=== PATIENT | female | born 1955 | race Caucasian/White ===

== ENCOUNTER 2017-10-20 20:39 | Emergency (ER) | payer BC ==
[2017-10-20] MEDS ORDERED: Sodium Chloride 0.9% 10 ML Syringe FLUSH PRN ×2 (21:55→23:07)
[2017-10-20] MEDS ORDERED: Sodium Chloride 0.9% 1,000 ML IV STA (21:55)
[2017-10-20] MEDS ORDERED: Ondansetron 4 MG/2 ML SDV IVPUSH ONE (21:55)
[2017-10-20] MEDS ORDERED: HYDROmorphone 0.5 MG/0.5 ML SYRINGE IVPUSH ONE (21:57)
[2017-10-20] MEDS ORDERED: Iopamidol 612 MG/ML 150 ML Bottle IVPUSH ONE (23:07)
[2017-10-20] MEDS ORDERED: Diatrizoate Meglumine/Diatrizoate Sodium 37% 120 ML Bottle PO ONE (23:07)
--- NOTE | 2017-10-20 23:55 | EDM.PDOC ---
ED HPI GENERAL MEDICAL PROBLEM - General Chief Complaint: Abdominal Pain Stated Complaint: CRAMPS ABDOMINAL PAIN Time Seen by Provider: 10/20/17 21:48 Source of Information: Reports: Patient History Limitations: Reports: No Limitations - History of Present Illness INITIAL COMMENTS - FREE TEXT/NARRATIVE: The patient presents with lower abdominal pain. This started about 3 days ago and it has gotten worse. The patient had an EGD done in [place] 9 days ago. She had some thickening of her small intestine on CT according to the patient. She had a biopsy done and she has not heard the results yet. For a few days after that she had some upper abdominal pain that was anticipated after the scope. A few days ago she started having the lower abdominal pain. She does not have an appetite. She has some mild nausea. She has no dysuria. She has a fever or 101. She has no cough, congestion, runny nose, chest pain or shortness of breath. She does not have a gallbladder. Onset: Gradual Duration: Day(s): (3) Location: Reports: Abdomen Quality: Reports: Sharp Severity: Moderate Improves with: Reports: None Worsens with: Reports: None Associated Symptoms: Reports: Fever/Chills, Nausea/Vomiting. Denies: Chest Pain , Cough, Shortness of Breath Lower Abdomen Pain Score (Numeric/FACES): 10 - Related Data Allergies Allergy/AdvReac Type Severity Reaction Status Date / Time morphine Allergy Cannot Verified 09/27/17 07:36 Remember Home Meds: Home Meds Aspirin [Halfprin] 81 mg PO DAILY 10/20/17 [History] Lisinopril [Prinivil] 10 mg PO DAILY 10/20/17 [History] Omeprazole 20 mg PO BID 10/20/17 [History] Ciprofloxacin HCl [Cipro] 500 mg PO BID #20 tablet 10/21/17 [Rx] Hydrocodone/Acetaminophen [Hydrocodon-Acetaminophen 5-325] 1 - 2 each PO Q6HR PRN #10 tablet 10/21/17 [Rx] Ondansetron [Zofran ODT] 4 mg PO Q6H PRN #20 tab.dis 10/21/17 [Rx] metroNIDAZOLE [Flagyl] 500 mg PO Q8H #30 tab 10/21/17 [Rx] Past Medical History Gastrointestinal History: Reports: GERD, Other (See Below) Other Gastrointestinal History: endoscopy x 2 Genitourinary History: Reports: UTI, Recurrent Musculoskeletal History: Reports: Other (See Below) Other Musculoskeletal History: degenerative disc disease Psychiatric History: Reports: Anxiety - Past Surgical History GI Surgical History: Reports: Cholecystectomy Female Surgical History: Reports: Hysterectomy Musculoskeletal Surgical History: Reports: Other (See Below) Other Musculoskeletal Surgeries/Procedures:: left hip fracture; left hand fracture Social & Family History - Tobacco Use Smoking Status *Q: Never Smoker - Caffeine Use Caffeine Use: Reports: Coffee, Soda, Tea - Recreational Drug Use Recreational Drug Use: No ED ROS GENERAL - Review of Systems Review Of Systems: See Below Constitutional: Reports: Fever, Chills HEENT: Reports: No Symptoms Respiratory: Reports: No Symptoms Cardiovascular: Reports: No Symptoms Endocrine: Reports: No Symptoms GI/Abdominal: Reports: Abdominal Pain, Nausea. Denies: Diarrhea, Vomiting : Reports: No Symptoms Musculoskeletal: Reports: No Symptoms ED EXAM, GI/ABD - Physical Exam Exam: See Below Exam Limited By: No Limitations General Appearance: Alert, No Apparent Distress Ears: Normal External Exam Nose: Normal Inspection Head: Atraumatic, Normocephalic Neck: Normal Inspection Respiratory/Chest: No Respiratory Distress, Lungs Clear, Normal Breath Sounds Cardiovascular: Regular Rate, Rhythm, No Edema, No Murmur GI/Abdominal Exam: Soft, No Organomegaly, No Mass, Tender (Moderate tenderness to the RLQ) Back Exam: Normal Inspection Course - Vital Signs Last Recorded V/S: Last Vital Signs Temp 99.3 F 10/20/17 21:22 Pulse 86 10/20/17 21:22 Resp 20 10/20/17 21:22 BP 148/94 H 10/20/17 21:22 Pulse Ox 96 10/20/17 21:22 - Orders/Labs/Meds Orders: Active Orders 24 hr Category Date Time Status Peripheral IV Care [RC] . DIRECTED Care 10/20/17 21:56 Active Abdomen Pelvis w Cont [CT] Stat Exams 10/20/17 21:55 Taken UA W/MICROSCOPIC [URIN] Stat Lab 10/20/17 22:10 Ordered Sodium Chloride 0.9% [Saline Flush] Med 10/20/17 21:55 Active 10 ml FLUSH ASDIRECTED PRN Sodium Chloride 0.9% [Saline Flush] Med 10/20/17 23:07 Active 10 ml FLUSH ONETIME PRN ED Antiemetic Medication Reflex [OM.PC] Stat Oth 10/20/17 21:55 Ordered Peripheral IV Insertion Adult [OM.PC] Stat Oth 10/20/17 21:55 Ordered Medication Orders Sodium Chloride (Saline Flush) 10 ml FLUSH ASDIRECTED PRN PRN Reason: Keep Vein Open Last Admin: 10/20/17 22:08 Dose: 10 ml Sodium Chloride (Saline Flush) 10 ml FLUSH ONETIME PRN PRN Reason: IV FLUSH Last Admin: 10/20/17 23:18 Dose: 10 ml Labs: Laboratory Tests 10/20/17 10/20/17 10/20/17 Range/Units 22:10 22:10 22:10 WBC 12.50 H (3.98-10.04) K/mm3 RBC 4.65 (3.98-5.22) M/mm3 Hgb 13.7 (11.2-15.7) gm/L Hct 41.0 (34.1-44.9) % MCV 88.2 (79.4-94.8) fl MCH 29.5 (25.6-32.2) pg MCHC 33.4 (32.2-35.5) g/dl RDW Std Deviation 38.9 (36.4-46.3) fL Plt Count 261 (182-369) K/mm3 MPV 9.7 (9.4-12.3) fl Neut % (Auto) 78.3 H (34.0-71.1) % Lymph % (Auto) 13.5 L (19.3-51.7) % [place] % (Auto) 7.4 (4.7-12.5) % Eos % (Auto) 0.5 L (0.7-5.8) Baso % (Auto) 0.1 (0.1-1.2) % Neut # (Auto) 9.80 H (1.56-6.13) K/mm3 Lymph # (Auto) 1.69 (1.18-3.74) K/mm3 [place] # (Auto) 0.92 H (0.24-0.36) K/mm3 Eos # (Auto) 0.06 (0.04-0.36) K/mm3 Baso # (Auto) 0.01 (0.01-0.08) K/mm3 Sodium 136 (136-145) mEq/L Potassium 3.5 (3.5-5.1) mEq/L Chloride 99 (98-107) mEq/L Carbon Dioxide 28 (21-32) mEq/L Anion Gap 12.5 (5-15) BUN 8 (7-18) mg/dL Creatinine 0.7 (0.55-1.02) mg/dL Est Cr Clr Drug Dosing 62.07 mL/min Estimated GFR (MDRD) > 60 (>60) mL/min BUN/Creatinine Ratio 11.4 L (14-18) Glucose 109 (80-115) mg/dL Calcium 8.8 (8.5-10.1) mg/dL Total Bilirubin 0.7 (0.2-1.0) mg/dL AST 20 (15-37) U/L ALT 20 (14-59) U/L Alkaline Phosphatase 80 (46-116) U/L Total Protein 7.1 (6.4-8.2) g/dl Albumin 3.6 (3.4-5.0) g/dl Globulin 3.5 gm/dL Albumin/Globulin Ratio 1.0 (1-2) Lipase 78 (73-393) U/L Urine Color Yellow (Yellow) Urine Appearance Clear (Clear) Urine pH 7.0 (5.0-8.0) Ur Specific [place] 1.020 (1.005-1.030) Urine Protein Negative (Negative) Urine Glucose (UA) Negative (Negative) Urine Ketones 3+ H (Negative) Urine Occult Blood Trace-intact H (Negative) Urine Nitrite Negative (Negative) Urine Bilirubin Negative (Negative) Urine Urobilinogen 0.2 (0.2-1.0) Ur Leukocyte Esterase Negative (Negative) Urine RBC 0-5 (0-5) /hpf Urine WBC 0-5 (0-5) /hpf Ur Epithelial Cells 0-5 (0-5) /hpf Urine Bacteria Few (FEW) /hpf Urine Mucus Not seen (FEW) /hpf Meds: Medications Generic Name Dose Route Start Last Admin Trade Name Freq PRN Reason Stop Dose Admin Sodium Chloride 10 ml 10/20/17 21:55 10/20/17 22:08 Saline Flush FLUSH 10 ml ASDIRECTED PRN Administration Keep Vein Open Sodium Chloride 10 ml 10/20/17 23:07 10/20/17 23:18 Saline Flush FLUSH 10 ml ONETIME PRN Administration IV FLUSH Discontinued Medications Generic Name Dose Route Start Last Admin Trade Name Hira PRN Reason Stop Dose Admin Diatrizoate Meglum/Diatrizoate Sod 120 ml 10/20/17 23:07 10/20/17 23:17 Gastrografin 37% PO 10/20/17 23:08 90 ml ONETIME ONE Administration Hydromorphone HCl 0.25 mg 10/20/17 21:57 10/20/17 22:08 Dilaudid IVPUSH 10/20/17 21:58 0.25 mg ONETIME ONE Administration Hydromorphone HCl 0.25 mg 10/21/17 00:20 10/21/17 00:26 Dilaudid IVPUSH 10/21/17 00:21 0.25 mg ONETIME ONE Administration Sodium Chloride 1,000 mls @ 1,000 mls/hr 10/20/17 21:55 10/20/17 22:07 Normal Saline IV 10/20/17 22:54 1,000 mls/hr .BOLUS STA Administration Iopamidol 150 ml 10/20/17 23:07 10/20/17 23:17 Isovue-300 (61%) IVPUSH 10/20/17 23:08 125 ml ONETIME ONE Administration Ondansetron HCl 4 mg 10/20/17 21:55 10/20/17 22:08 Zofran IVPUSH 10/20/17 21:56 4 mg ONETIME ONE Administration Ondansetron HCl 4 mg 10/21/17 00:29 10/21/17 00:32 Zofran IVPUSH 10/21/17 00:30 4 mg ONETIME ONE Administration - Re-Assessments/Exams Free Text/Narrative Re-Assessment/Exam: 10/20/17 23:53 I ordered an IV NS 1L bolus, zofran 4mg IV, dilaudid 0.25mg IV, labs, UA and a CT of her abdomen and pelvis. 10/20/17 23:54 Her WBC was elevated at 12.5. Her CMP looks good. Her lipase was negative. Her UA shows no UTI. I am waiting for the CT report. 10/21/17 00:23 The pain is starting to come back so I ordered another dose of dilaudid 0.25mg IV. I am still waiting on the CT to be read. 10/21/17 00:[address] shows acute diverticulitis involving the sigmoid colon. No evidence of complication. Gastroesophageal reflux. Incidental, non-urgent findings as above. I will give her a dose of levaquin 500mg by mouth and flagyl 500mg by mouth. I will get her on flagyl and cipro at home. Departure - Departure Time of Disposition: 00:45 Disposition: Home, Self-Care 01 Condition: Good Clinical Impression: Diverticulitis - Discharge Information Prescriptions: Hydrocodone/Acetaminophen [Hydrocodon-Acetaminophen 5-325] 1 - 2 each PO Q6HR PRN #10 tablet PRN Reason: Pain Ciprofloxacin HCl [Cipro] 500 mg PO BID #20 tablet metroNIDAZOLE [Flagyl] 500 mg PO Q8H #30 tab Ondansetron [Zofran ODT] 4 mg PO Q6H PRN #20 tab.dis PRN Reason: Nausea\vomiting Referrals: Johanna Hendrix PA-C [Primary Care Provider] - 1 Week Forms: ED Department Discharge Additional Instructions: Take the flagyl 3 times per day for 10 days and the cipro 2 times per day for 10 days. You may take the zofran every 6 hours as needed for nausea and vomiting. You can also take the hydrocodone as needed for pain. Please return if you are worse. Follow up with Emily Hendrix in [place] next week. - My Orders Last 24 Hours: My Active Orders 10/20/17 21:55 Abdomen Pelvis w Cont [CT] Stat Sodium Chloride 0.9% [Saline Flush] 10 ml FLUSH ASDIRECTED PRN ED Antiemetic Medication Reflex [OM.PC] Stat Peripheral IV Insertion Adult [OM.PC] Stat 10/20/17 21:56 Peripheral IV Care [RC] . DIRECTED 10/20/17 22:10 UA W/MICROSCOPIC [URIN] Stat 10/20/17 23:07 Sodium Chloride 0.9% [Saline Flush] 10 ml FLUSH ONETIME PRN - Assessment/Plan Last 24 Hours: My Active Orders 10/20/17 21:55 Abdomen Pelvis w Cont [CT] Stat Sodium Chloride 0.9% [Saline Flush] 10 ml FLUSH ASDIRECTED PRN ED Antiemetic Medication Reflex [OM.PC] Stat Peripheral IV Insertion Adult [OM.PC] Stat 10/20/17 21:56 Peripheral IV Care [RC] . DIRECTED 10/20/17 22:10 UA W/MICROSCOPIC [URIN] Stat 10/20/17 23:07 Sodium Chloride 0.9% [Saline Flush] 10 ml FLUSH ONETIME PRN
[2017-10-21] MEDS ORDERED: HYDROmorphone 0.5 MG/0.5 ML SYRINGE IVPUSH ONE (00:20)
[2017-10-21] MEDS ORDERED: Ondansetron 4 MG/2 ML SDV IVPUSH ONE (00:29)
[2017-10-21] MEDS ORDERED: Levofloxacin 500 MG Tab PO ONE (00:38)
[2017-10-21] MEDS ORDERED: metroNIDAZOLE 500 MG Tab PO ONE (00:39)
--- NOTE | 2017-10-21 12:06 | CT ---
CT abdomen and pelvis Technique: Multiple axial sections were obtained from above the dome of the diaphragm inferiorly through the pubic symphysis. Intravenous and oral contrast was utilized. Delayed images were obtained through the bladder. Comparison: Prior abdominal and pelvic CT exam of 09/27/17. Findings: Visualized lung bases show nothing acute. Low density is noted near the ligamentum teres fissure which is normal variant. Gastroesophageal reflux of contrast is seen. Liver contains no other abnormality. Spleen appears within normal limits. Adrenal glands show no nodule. Pancreas is within normal limits. Several soft tissue nodules are noted medial to the spleen compatible with accessory splenic tissue. Kidneys show no hydronephrosis or mass. Symmetric contrast enhancement seen in the kidneys. Aorta contains no aneurysm. No retroperitoneal adenopathy or mesenteric abnormalities are seen. Appendix is seen which appears normal in size. Numerous diverticuli are seen within the sigmoid colon. Slight inflammatory change is suggested within the sigmoid colon which is felt compatible with mild diverticulitis. Delayed images show contrast within the bladder. Bone window settings were reviewed showing scattered degenerative change within the spine with mild scoliosis. Lucency is seen within left femoral head compatible with previous orthopedic hardware. Impression: 1. Findings felt compatible with mild diverticulitis. 2. Other incidental findings. Diagnostic code #3 I agree with preliminary report from [facility], finalized at 10/21/17, 1:27 AM Central Time
== END 2017-10-21 00:50 | disposition home or self-care (01) ==
LOC: JD.ED 20:39
DX: K57.32 Diverticulitis of large intestine without perforation or abscess without bleeding (principal); Z88.5 Allergy status to narcotic agent; Z79.82 Long term (current) use of aspirin; Z79.899 Other long term (current) drug therapy; Z87.440 Personal history of urinary (tract) infections
CPT/HCPCS: 36415; 74177; 80053; 81001; 83690; 85025; 96361; 96374; 96375; 96376; 99284; A9270; J1170; J2405; J7040; J7050; Q9963; Q9967

== ENCOUNTER 2017-10-23 10:34 | Inpatient (IN) | payer BC ==
[2017-10-23] MEDS ORDERED: Sodium Chloride 0.9% 1,000 ML IV ONE (11:30)
[2017-10-23] MEDS ORDERED: HYDROmorphone 0.5 MG/0.5 ML SYRINGE IVPUSH ONE ×2 (11:30→14:44)
[2017-10-23] MEDS ORDERED: Sodium Chloride 0.9% 10 ML Syringe FLUSH PRN ×2 (11:30→14:00)
[2017-10-23] MEDS ORDERED: Ondansetron 4 MG/2 ML SDV IVPUSH ONE ×2 (11:30→14:44)
--- NOTE | 2017-10-23 12:12 | EDM.PDOC ---
ED HPI GENERAL MEDICAL PROBLEM - General Chief Complaint: Abdominal Pain Stated Complaint: ABDOMINAL PAIN Time Seen by Provider: 10/23/17 11:36 Source of Information: Reports: Patient, Old Records (recent ER visit) History Limitations: Reports: No Limitations - History of Present Illness INITIAL COMMENTS - FREE TEXT/NARRATIVE: 62-year-old female presents for evaluation and treatment of abdominal pain. Patient reports abdominal pain in the lower abdomen, currently rates the pain as 8 or 9 out of 10. She reports associated symptoms of nausea, vomiting and fevers. Patient was seen on Saturday night/ Saturday morning in the ER. She had labs and a CT done. Diagnosed with diverticulitis. She has been on Flagyl and ciprofloxacin since the diagnosis. She was also given [place] and Zofran. She states that she is getting worse. She is vomiting and is therefore unable to keep her antibiotics down. She did take her antibiotic this morning around 6 AM and has kept them down today. No vomiting today. She took a Zofran this morning around 6 AM. She also took a hydrocodone around 4 AM. States her fevers have been 97-99, she has not had a fever since Saturday. No chills or any blood in her stool. She has had diarrhea recently but attributes this to the oral contrast she had on Saturday for the CT. Reports that she has not had much appetite. Patient reports one month ago she experienced "weird sensation" in her lower abdomen. She saw her primary care provider, Elicia Boone, who ordered a CT. She states she had thickening in the small bowel. She had an upper endoscopy with biopsies. Reports that these returned normal. Reports her last colonoscopy was about 5 years ago. Lower Abdominal Pain Score (Numeric/FACES): 9 - Related Data Allergies Allergy/AdvReac Type Severity Reaction Status Date / Time morphine AdvReac Nausea Verified 10/23/17 11:04 Home Meds: Home Meds Aspirin [Halfprin] 81 mg PO DAILY 10/20/17 [History] Lisinopril [Prinivil] 10 mg PO DAILY 10/20/17 [History] Omeprazole 20 mg PO BID 10/20/17 [History] Ciprofloxacin HCl [Cipro] 500 mg PO BID #20 tablet 10/21/17 [Rx] Hydrocodone/Acetaminophen [Hydrocodon-Acetaminophen 5-325] 1 - 2 each PO Q6HR PRN #10 tablet 10/21/17 [Rx] Ondansetron [Zofran ODT] 4 mg PO Q6H PRN #20 tab.dis 10/21/17 [Rx] metroNIDAZOLE [Flagyl] 500 mg PO Q8H #30 tab 10/21/17 [Rx] Past Medical History Gastrointestinal History: Reports: GERD, Other (See Below) Other Gastrointestinal History: endoscopy x 2 Genitourinary History: Reports: UTI, Recurrent Musculoskeletal History: Reports: Other (See Below) Other Musculoskeletal History: degenerative disc disease Psychiatric History: Reports: Anxiety - Past Surgical History GI Surgical History: Reports: Cholecystectomy Female Surgical History: Reports: Hysterectomy Musculoskeletal Surgical History: Reports: Other (See Below) Other Musculoskeletal Surgeries/Procedures:: left hip fracture; left hand fracture Social & Family History - Family History Family Medical History: Noncontributory - Tobacco Use Smoking Status *Q: Never Smoker - Caffeine Use Caffeine Use: Reports: Coffee - Recreational Drug Use Recreational Drug Use: No ED ROS GENERAL - Review of Systems Review Of Systems: See Below Constitutional: Reports: Fever (reports 97-99; no fever since Saturday), Malaise, Decreased Appetite. Denies: Chills GI/Abdominal: Reports: Abdominal Pain (lower abdomen), Diarrhea, Nausea, Vomiting. Denies: Bloody Stool : Reports: No Symptoms ED EXAM, GI/ABD - Physical Exam Exam: See Below Exam Limited By: No Limitations General Appearance: Alert, WD/WN, No Apparent Distress Respiratory/Chest: No Respiratory Distress, Lungs Clear, Normal Breath Sounds Cardiovascular: Normal Peripheral Pulses, Regular Rate, Rhythm, No Murmur GI/Abdominal Exam: Normal Bowel Sounds, Soft, No Distention, Tender (LLQ). No: Guarding, Rigid, Rebound Neurological: Alert, Oriented, Normal Cognition Psychiatric: Normal Affect, Normal Mood Skin Exam: Warm, Dry, Normal Color Course - Vital Signs Last Recorded V/S: Last Vital Signs Temp 36.9 C 10/23/17 11:05 Pulse 86 10/23/17 11:05 Resp 18 10/23/17 11:05 BP 135/70 10/23/17 11:05 Pulse Ox 99 10/23/17 11:05 - Orders/Labs/Meds Orders: Active Orders 24 hr Category Date Time Status Peripheral IV Care [RC] . DIRECTED Care 10/23/17 11:31 Active UA W/MICROSCOPIC [URIN] Stat Lab 10/23/17 13:05 Ordered Sodium Chloride 0.9% [Normal Saline] 1,000 ml Med 10/23/17 13:15 Active IV ASDIRECTED Sodium Chloride 0.9% [Saline Flush] Med 10/23/17 11:30 Active 10 ml FLUSH ASDIRECTED PRN Sodium Chloride 0.9% [Saline Flush] Med 10/23/17 14:00 Active 10 ml FLUSH ONETIME PRN Peripheral IV Insertion Adult [OM.PC] Routine Oth 10/23/17 11:30 Ordered Medication Orders Sodium Chloride (Normal Saline) 1,000 mls @ 125 mls/hr IV ASDIRECTED EVER Last Admin: 10/23/17 13:08 Dose: 125 mls/hr Sodium Chloride (Saline Flush) 10 ml FLUSH ASDIRECTED PRN PRN Reason: Keep Vein Open Last Admin: 10/23/17 11:54 Dose: 10 ml Sodium Chloride (Saline Flush) 10 ml FLUSH ONETIME PRN PRN Reason: IV FLUSH Last Admin: 10/23/17 14:19 Dose: 10 ml Labs: Laboratory Tests 10/23/17 10/23/17 10/23/17 Range/Units 11:38 11:38 13:05 WBC 14.47 H (3.98-10.04) K/mm3 RBC 4.29 (3.98-5.22) M/mm3 Hgb 12.6 (11.2-15.7) gm/L Hct 38.1 (34.1-44.9) % MCV 88.8 (79.4-94.8) fl MCH 29.4 (25.6-32.2) pg MCHC 33.1 (32.2-35.5) g/dl RDW Std Deviation 37.8 (36.4-46.3) fL Plt Count 265 (182-369) K/mm3 MPV 9.7 (9.4-12.3) fl Neutrophils % (Manual) 86 H (40-60) % Band Neutrophils % 0 (0-10) % Lymphocytes % (Manual) 11 L (20-40) % Atypical Lymphs % 0 % Monocytes % (Manual) 3 (2-10) % Eosinophils % (Manual) 0 L (0.7-5.8) % Basophils % (Manual) 0 L (0.1-1.2) Differential Comment See note Platelet Estimate Adequate RBC Morph Comment Normal Sodium 129 L (136-145) mEq/L Potassium 3.7 (3.5-5.1) mEq/L Chloride 92 L (98-107) mEq/L Carbon Dioxide 25 (21-32) mEq/L Anion Gap 15.7 H (5-15) BUN 7 (7-18) mg/dL Creatinine 0.8 (0.55-1.02) mg/dL Est Cr Clr Drug Dosing 54.31 mL/min Estimated GFR (MDRD) > 60 (>60) mL/min BUN/Creatinine Ratio 8.8 L (14-18) Glucose 79 L (80-115) mg/dL Calcium 8.5 (8.5-10.1) mg/dL Total Bilirubin 0.8 (0.2-1.0) mg/dL AST 21 (15-37) U/L ALT 26 (14-59) U/L Alkaline Phosphatase 79 (46-116) U/L C-Reactive Protein 18.0 H* (<1.0) mg/dL Total Protein 6.8 (6.4-8.2) g/dl Albumin 3.3 L (3.4-5.0) g/dl Globulin 3.5 gm/dL Albumin/Globulin Ratio 0.9 L (1-2) Urine Color Light yellow (Yellow) Urine Appearance Clear (Clear) Urine pH 6.0 (5.0-8.0) Ur Specific [place] 1.015 (1.005-1.030) Urine Protein Negative (Negative) Urine Glucose (UA) Negative (Negative) Urine Ketones 3+ H (Negative) Urine Occult Blood Negative (Negative) Urine Nitrite Negative (Negative) Urine Bilirubin Negative (Negative) Urine Urobilinogen 0.2 (0.2-1.0) Ur Leukocyte Esterase Negative (Negative) Urine RBC 0-5 (0-5) /hpf Urine WBC 0-5 (0-5) /hpf Ur Epithelial Cells 0-5 (0-5) /hpf Urine Bacteria Not seen (FEW) /hpf Urine Mucus Not seen (FEW) /hpf Meds: Medications Generic Name Dose Route Start Last Admin Trade Name Freq PRN Reason Stop Dose Admin Sodium Chloride 1,000 mls @ 125 mls/hr 10/23/17 13:15 10/23/17 13:08 Normal Saline IV 125 mls/hr ASDIRECTED EVER Administration Sodium Chloride 10 ml 10/23/17 11:30 10/23/17 11:54 Saline Flush FLUSH 10 ml ASDIRECTED PRN Administration Keep Vein Open Sodium Chloride 10 ml 10/23/17 14:00 10/23/17 14:19 Saline Flush FLUSH 10 ml ONETIME PRN Administration IV FLUSH Discontinued Medications Generic Name Dose Route Start Last Admin Trade Name Freq PRN Reason Stop Dose Admin Diatrizoate Meglum/Diatrizoate Sod 90 ml 10/23/17 14:00 10/23/17 14:19 Gastrografin 37% PO 10/23/17 14:01 90 ml ONETIME ONE Administration Hydromorphone HCl 0.5 mg 10/23/17 11:30 10/23/17 11:53 Dilaudid IVPUSH 10/23/17 11:31 0.5 mg ONETIME ONE Administration Hydromorphone HCl 0.5 mg 10/23/17 14:44 10/23/17 15:01 Dilaudid IVPUSH 10/23/17 14:45 0.5 mg ONETIME ONE Administration Sodium Chloride 1,000 mls @ 999 mls/hr 10/23/17 11:30 10/23/17 11:52 Normal Saline IV 10/23/17 12:30 999 mls/hr ONETIME ONE Administration Iopamidol 100 ml 10/23/17 14:00 10/23/17 14:19 Isovue-300 (61%) IVPUSH 10/23/17 14:01 100 ml ONETIME ONE Administration Metoclopramide HCl 5 mg 10/23/17 13:04 10/23/17 13:09 Reglan IVPUSH 10/23/17 13:05 5 mg ONETIME ONE Administration Ondansetron HCl 4 mg 10/23/17 11:30 10/23/17 11:53 Zofran IVPUSH 10/23/17 11:31 4 mg ONETIME ONE Administration Ondansetron HCl 4 mg 10/23/17 14:44 10/23/17 15:00 Zofran IVPUSH 10/23/17 14:45 4 mg ONETIME ONE Administration - Radiology Interpretation Free Text/Narrative:: Abdomen: Supine and upright views of the abdomen were obtained. Comparison: Prior abdominal x-ray of 09/25/17. Scoliosis is noted within the spine. Scattered degenerative change also seen. Surgical clips are seen within the upper right abdomen. Bowel gas pattern appears normal. Calcifications are seen within the pelvis which are felt compatible with phleboliths. Surgical clips are noted from prior cholecystectomy. No free air is seen. Impression: 1. Incidental findings. No free air is seen. CT abdomen and pelvis Technique: Multiple axial sections were obtained from above the dome of the diaphragm inferiorly through the pubic symphysis. Intravenous and oral contrast was utilized. Comparison: Prior CT abdomen and pelvis exam of 10/20/17. Findings: Inflammatory change is identified around the sigmoid colon with diverticuli. Increased inflammatory change is seen as well as increased bowel wall thickening. There appears to be a small diverticular abscess off the inferior sigmoid colon into the perirectal soft tissues on the left side. This diverticular abscess measures about 2.2 cm. Visualized lung bases shows nothing acute. Liver and spleen appears within normal limits. Surgical clips are seen from prior cholecystectomy. Adrenal glands show no nodule. Kidneys show symmetric contrast enhancement without hydronephrosis or mass. Pancreas appears within normal limits. Aorta shows atherosclerotic calcification without aneurysmal dilatation. No retroperitoneal adenopathy or mesenteric abnormalities are seen. Bone window settings were reviewed which shows degenerative change primarily at L2-3. Lucency is again noted within the left femoral head compatible with previous orthopedic hardware which has been removed. Impression: 1. Worsening findings of diverticulitis with increased inflammatory change as well as increased bowel wall thickening within the sigmoid colon. Small diverticular abscess is now seen extending inferiorly off the sigmoid colon into the left sided perirectal soft tissues measuring about 2.2 cm in size. 2. Other portions of the CT exam of the abdomen and pelvis are unremarkable. - Re-Assessments/Exams Free Text/Narrative Re-Assessment/Exam: 10/23/17 13:00 Patient's labs returned. White blood cell count is elevated, CRP is elevated. Rechecked the patient. She is doing better with the Zofran and the Dilaudid. Discussed the case with Dr. High. Given that she has failed outpatient the do feel that she would benefit from an inpatient admission for IV antibiotics, fluids and pain control. He would like us to go ahead and CT to make sure she has not developed an abscess or perforation. 10/23/17 14:48 [address] returned. Spoke with Dr. Celis, surgery personal caregiver, recommended discussing with IR. Said normally under 3cm abscess is managed with antibiotics. Discussed with patient. Pain and nausea worsening. Dilaudid and Reglan ordered. 10/23/17 15:[address] Ward, interventional radiologist at [facility] in [place]. At this time he does not feel that any intervention is needed and recommended IV antibiotics. He did look at her CT. He did tell me that by Saturday or Saturday the abscess and phlegmon should declare itself and if intervention is needed at that time we will know by Saturday or Saturday. I discussed with the patient. I did offer to send her to [place] where if she does need further intervention this is available to her. I informed her for the immediate future treatment would be the same whether here or in [place] with IV antibiotics, nausea medication and pain control. She would like to stay here in [place] as they reside out in [facility] and this is more convenient for her. She was informed that if her symptoms do worsen she may need to go to [place] and she is okay with this. Departure - Departure Time of Disposition: 15:40 Disposition: Admitted As Inpatient 65 Condition: Poor Clinical Impression: Diverticulitis, Colonic diverticular abscess - Discharge Information Referrals: Johanna Hendrix PA-C [Primary Care Provider] - Forms: ED Department Discharge Additional Instructions: Patient admitted to med/surg for diverticulitis with abscess. Failed outpatient treatment. - My Orders Last 24 Hours: My Active Orders 10/23/17 11:30 Sodium Chloride 0.9% [Saline Flush] 10 ml FLUSH ASDIRECTED PRN Peripheral IV Insertion Adult [OM.PC] Routine 10/23/17 11:31 Peripheral IV Care [RC] . DIRECTED 10/23/17 13:05 UA W/MICROSCOPIC [URIN] Stat 10/23/17 13:15 Sodium Chloride 0.9% [Normal Saline] 1,000 ml IV ASDIRECTED 10/23/17 14:00 Sodium Chloride 0.9% [Saline Flush] 10 ml FLUSH ONETIME PRN - Assessment/Plan Last 24 Hours: My Active Orders 10/23/17 11:30 Sodium Chloride 0.9% [Saline Flush] 10 ml FLUSH ASDIRECTED PRN Peripheral IV Insertion Adult [OM.PC] Routine 10/23/17 11:31 Peripheral IV Care [RC] . DIRECTED 10/23/17 13:05 UA W/MICROSCOPIC [URIN] Stat 10/23/17 13:15 Sodium Chloride 0.9% [Normal Saline] 1,000 ml IV ASDIRECTED 10/23/17 14:00 Sodium Chloride 0.9% [Saline Flush] 10 ml FLUSH ONETIME PRN
[2017-10-23] MEDS ORDERED: Metoclopramide 10 MG/2 ML SDV IVPUSH ONE (13:04)
[2017-10-23] MEDS: Sodium Chloride 0.9% 1,000 ML IV SCH ×2 (13:08→22:36)
--- NOTE | 2017-10-23 13:40 | CR ---
Abdomen: Supine and upright views of the abdomen were obtained. Comparison: Prior abdominal x-ray of 09/25/17. Scoliosis is noted within the spine. Scattered degenerative change also seen. Surgical clips are seen within the upper right abdomen. Bowel gas pattern appears normal. Calcifications are seen within the pelvis which are felt compatible with phleboliths. Surgical clips are noted from prior cholecystectomy. No free air is seen. Impression: 1. Incidental findings. No free air is seen. Diagnostic code #2
[2017-10-23] MEDS ORDERED: Iopamidol 612 MG/ML 100 ML Bottle IVPUSH ONE (14:00)
[2017-10-23] MEDS ORDERED: Diatrizoate Meglumine/Diatrizoate Sodium 37% 120 ML Bottle PO ONE (14:00)
--- NOTE | 2017-10-23 14:34 | CT ---
CT abdomen and pelvis Technique: Multiple axial sections were obtained from above the dome of the diaphragm inferiorly through the pubic symphysis. Intravenous and oral contrast was utilized. Comparison: Prior CT abdomen and pelvis exam of 10/20/17. Findings: Inflammatory change is identified around the sigmoid colon with diverticuli. Increased inflammatory change is seen as well as increased bowel wall thickening. There appears to be a small diverticular abscess off the inferior sigmoid colon into the perirectal soft tissues on the left side. This diverticular abscess measures about 2.2 cm. Visualized lung bases shows nothing acute. Liver and spleen appears within normal limits. Surgical clips are seen from prior cholecystectomy. Adrenal glands show no nodule. Kidneys show symmetric contrast enhancement without hydronephrosis or mass. Pancreas appears within normal limits. Aorta shows atherosclerotic calcification without aneurysmal dilatation. No retroperitoneal adenopathy or mesenteric abnormalities are seen. Bone window settings were reviewed which shows degenerative change primarily at L2-3. Lucency is again noted within the left femoral head compatible with previous orthopedic hardware which has been removed. Impression: 1. Worsening findings of diverticulitis with increased inflammatory change as well as increased bowel wall thickening within the sigmoid colon. Small diverticular abscess is now seen extending inferiorly off the sigmoid colon into the left sided perirectal soft tissues measuring about 2.2 cm in size. 2. Other portions of the CT exam of the abdomen and pelvis are unremarkable. Diagnostic code #3
[2017-10-23] MEDS ORDERED: Docusate Sodium 100 MG Cap PO PRN (16:40)
[2017-10-23] MEDS ORDERED: Bisacodyl 5 MG Tab PO PRN (16:40)
[2017-10-23] MEDS ORDERED: Magnesium Hydroxide 400 MG/5 ML Susp 30 ML Cup PO PRN (16:40)
[2017-10-23] MEDS ORDERED: Temazepam 7.5 MG Cap PO PRN (16:40)
[2017-10-23] MEDS ORDERED: Acetaminophen 325 MG Tab PO PRN (16:40)
[2017-10-23] MEDS ORDERED: Polyethylene Glycol 3350 Powder 17 GM Packet PO PRN (16:40)
[2017-10-23] MEDS ORDERED: Promethazine 25 MG Tab PO PRN (16:40)
[2017-10-23] MEDS ORDERED: hydrALAZINE 20 MG/ML SDV IVPUSH PRN ×2 (16:55→23:34)
--- NOTE | 2017-10-23 17:04 | PCM.HP ---
H&P History of Present Illness - General Date of Service: 10/23/17 Admit Problem/Dx: Admission Diagnosis/Problem Admission Diagnosis/Problem Diverticulitis Source of Information: Patient, Provider History Limitations: Reports: No Limitations - History of Present Illness Initial Comments - Free Text/Narative: This is a 62 yo female with past medical hx/o HTN, GERD, Anxiety who comes in for worsening diverticulitis. Currently 7/10 pain. She reports fever, nausea, vomiting, diarrhea, decreased appetite. She denies chills, bloody stool or other GI/ complaints. Her symptoms improved after receiving fluids, anti-nausea medication, and pain medication in the ED. Her initial workup in the ED shows a CBC remarkable for WBC 14.47, Neutrophils of 86%, and lymphocyte of 11%. Her chemistry is remarkable for Na 129, Cl 92, Anion Gap 15.7, Glucose 79, CRP 18, Albumin 3.3. CT showed worsening diverticulitis and 2.2 cm abscess. She is subsequently admitted to the medical floor. She is a Full code. Her PCP is Johanna Hendrix. Lower Abdominal Pain Score (Numeric/FACES): 9 - Related Data Allergies/Adverse Reactions: Allergies Allergy/AdvReac Type Severity Reaction Status Date / Time morphine AdvReac Nausea Verified 10/23/17 11:04 Home Medications: Home Meds Aspirin [Halfprin] 81 mg PO DAILY 10/20/17 [History] Lisinopril [Prinivil] 10 mg PO DAILY 10/20/17 [History] Omeprazole 20 mg PO BID 10/20/17 [History] Ciprofloxacin HCl [Cipro] 500 mg PO BID #20 tablet 10/21/17 [Rx] Hydrocodone/Acetaminophen [Hydrocodon-Acetaminophen 5-325] 1 - 2 each PO Q6HR PRN #10 tablet 10/21/17 [Rx] Ondansetron [Zofran ODT] 4 mg PO Q6H PRN #20 tab.dis 10/21/17 [Rx] metroNIDAZOLE [Flagyl] 500 mg PO Q8H #30 tab 10/21/17 [Rx] Past Medical History HEENT History: Reports: Impaired Vision, Other (See Below) Other HEENT History: dry eye Cardiovascular History: Reports: Hypertension Gastrointestinal History: Reports: GERD, Other (See Below) Other Gastrointestinal History: endoscopy x 2 Genitourinary History: Reports: UTI, Recurrent Musculoskeletal History: Reports: Other (See Below) Other Musculoskeletal History: degenerative disc disease Psychiatric History: Reports: Anxiety Hematologic History: Reports: Blood Transfusion(s), Other (See Below) Other Hematologic History: blood transfusin due to miscarriage complications. - Infectious Disease History Infectious Disease History: Reports: Chicken Pox - Past Surgical History GI Surgical History: Reports: Cholecystectomy Female Surgical History: Reports: Hysterectomy Musculoskeletal Surgical History: Reports: Other (See Below) Other Musculoskeletal Surgeries/Procedures:: left hip fracture; left hand fracture Social & Family History - Family History Family Medical History: Noncontributory - Tobacco Use Smoking Status *Q: Never Smoker Second Hand Smoke Exposure: No - Caffeine Use Caffeine Use: Reports: Coffee, Soda, Tea - Recreational Drug Use Recreational Drug Use: No H&P Review of Systems - Review of Systems: Review Of Systems: See Below General: Reports: Fever, Decreased Appetite. Denies: Chills HEENT: Reports: No Symptoms Pulmonary: Reports: No Symptoms. Denies: Shortness of Breath, Cough Cardiovascular: Reports: No Symptoms. Denies: Chest Pain, Palpitations, Dyspnea on Exertion Gastrointestinal: Reports: Abdominal Pain (7/10 lower abdominal pain), Diarrhea , Decreased Appetite, Nausea, Vomiting. Denies: Hematochezia Genitourinary: Reports: No Symptoms. Denies: Dysuria, Frequency, Burning, Pain Musculoskeletal: Reports: No Symptoms Skin: Reports: No Symptoms Psychiatric: Reports: No Symptoms Neurological: Reports: No Symptoms Hematologic/Lymphatic: Reports: No Symptoms Immunologic: Reports: No Symptoms Exam - Exam Exam: See Below - Vital Signs Vital Signs: Last Vital Signs Temp 98.5 F 10/23/17 11:05 Pulse 86 10/23/17 11:05 Resp 18 10/23/17 11:05 BP 135/70 10/23/17 11:05 Pulse Ox 99 10/23/17 11:05 Weight: 133 lb 12.8 oz - Exam Quality Assessment: DVT Prophylaxis General: Alert, Oriented, Cooperative, Mild Distress HEENT: PERRLA, Hearing Intact, Mucosa Moist & [place], Nares Patent, Normal Nasal Septum, Posterior Pharynx Clear, Conjunctiva Clear, EOMI, EACs Clear, TMs Clear Neck: Supple, Trachea Midline, 2 Lungs: Clear to Auscultation, Normal Respiratory Effort Cardiovascular: Regular Rate, Regular Rhythm GI/Abdominal Exam: Normal Bowel Sounds, Soft, No Organomegaly, No Distention, No Abnormal Bruit, No Mass, Pelvis Stable, Tender (lower quadrants). No: Distended (Female) Exam: Deferred Rectal (Female) Exam: Deferred Back Exam: Normal Inspection, Full Range of Motion, NT Extremities: Normal Inspection, Normal Range of Motion, Non-Tender, No Pedal Edema, Normal Capillary Refill Peripheral Pulses: 3+: Posterior Tibial (L), Posterior Tibial (R), Dorsalis Pedis (L), Dorsalis Pedis (R) Skin: Warm, Dry, Intact Neurological: Cranial Nerves Intact (grossly) Neuro Extensive - Mental Status: Alert, Oriented x3, Normal Mood/Affect, Normal Cognition Psychiatric: Alert, Normal Affect, Normal Mood - Patient Data Lab Results Last 24 hrs: Laboratory Results - last 24 hr 10/23/17 10/23/17 10/23/17 Range/Units 11:38 11:38 13:05 WBC 14.47 H (3.98-10.04) K/mm3 RBC 4.29 (3.98-5.22) M/mm3 Hgb 12.6 (11.2-15.7) gm/L Hct 38.1 (34.1-44.9) % MCV 88.8 (79.4-94.8) fl MCH 29.4 (25.6-32.2) pg MCHC 33.1 (32.2-35.5) g/dl RDW Std Deviation 37.8 (36.4-46.3) fL Plt Count 265 (182-369) K/mm3 MPV 9.7 (9.4-12.3) fl Neutrophils % (Manual) 86 H (40-60) % Band Neutrophils % 0 (0-10) % Lymphocytes % (Manual) 11 L (20-40) % Atypical Lymphs % 0 % Monocytes % (Manual) 3 (2-10) % Eosinophils % (Manual) 0 L (0.7-5.8) % Basophils % (Manual) 0 L (0.1-1.2) Differential Comment See note Platelet Estimate Adequate RBC Morph Comment Normal Sodium 129 L (136-145) mEq/L Potassium 3.7 (3.5-5.1) mEq/L Chloride 92 L (98-107) mEq/L Carbon Dioxide 25 (21-32) mEq/L Anion Gap 15.7 H (5-15) BUN 7 (7-18) mg/dL Creatinine 0.8 (0.55-1.02) mg/dL Est Cr Clr Drug Dosing 54.31 mL/min Estimated GFR (MDRD) > 60 (>60) mL/min BUN/Creatinine Ratio 8.8 L (14-18) Glucose 79 L (80-115) mg/dL Calcium 8.5 (8.5-10.1) mg/dL Total Bilirubin 0.8 (0.2-1.0) mg/dL AST 21 (15-37) U/L ALT 26 (14-59) U/L Alkaline Phosphatase 79 (46-116) U/L C-Reactive Protein 18.0 H* (<1.0) mg/dL Total Protein 6.8 (6.4-8.2) g/dl Albumin 3.3 L (3.4-5.0) g/dl Globulin 3.5 gm/dL Albumin/Globulin Ratio 0.9 L (1-2) Urine Color Light yellow (Yellow) Urine Appearance Clear (Clear) Urine pH 6.0 (5.0-8.0) Ur Specific [place] 1.015 (1.005-1.030) Urine Protein Negative (Negative) Urine Glucose (UA) Negative (Negative) Urine Ketones 3+ H (Negative) Urine Occult Blood Negative (Negative) Urine Nitrite Negative (Negative) Urine Bilirubin Negative (Negative) Urine Urobilinogen 0.2 (0.2-1.0) Ur Leukocyte Esterase Negative (Negative) Urine RBC 0-5 (0-5) /hpf Urine WBC 0-5 (0-5) /hpf Ur Epithelial Cells 0-5 (0-5) /hpf Urine Bacteria Not seen (FEW) /hpf Urine Mucus Not seen (FEW) /hpf Result Diagrams: 10/23/17 11:38 10/23/17 11:38 - Problem List (1) Colonic diverticular abscess SNOMED Code(s): 872423313 ICD Code: K57.20 - DVTRCLI OF LG INT W PERFORATION AND ABSCESS W/O BLEEDING Status: Acute Priority: High Current Visit: Yes (2) Diverticulitis SNOMED Code(s): 392633777 ICD Code: K57.92 - DVTRCLI OF INTEST, PART UNSP, W/O PERF OR ABSCESS W/O BLEED Status: Acute Priority: High Current Visit: Yes Problem List Initiated/Reviewed/Updated: Yes Orders Last 24hrs: Active Orders 24 hr Category Date Time Status Patient Status [ADT] Routine ADT 10/23/17 16:06 Active Ambulate [RC] ASDIRECTED Care 10/23/17 16:40 Active Ambulate [RC] PER UNIT ROUTINE Care 10/23/17 16:43 Active Height and Weight [RC] DAILY Care 10/23/17 16:40 Active Intake and Output [RC] QSHIFT Care 10/23/17 16:42 Active May Shower [RC] ASDIRECTED Care 10/23/17 16:40 Active Oxygen Therapy [RC] PRN Care 10/23/17 16:40 Active Peripheral IV Care [RC] . DIRECTED Care 10/23/17 11:31 Active Pulse Oximetry [RC] PRN Care 10/23/17 16:42 Active VTE/DVT Education [RC] PER UNIT ROUTINE Care 10/23/17 16:40 Active Vital Signs [RC] Q4H Care 10/23/17 16:40 Active Consult to Spiritual Care [CONS] Routine Cons 10/23/17 16:40 Active Nothing per Oral Now Diet [DIET] Diet 10/23/17 Dinner Active Abdomen w Cont [CT] Routine Exams 10/25/17 05:11 Ordered BASIC METABOLIC PANEL,BMP [CHEM] AM Lab 10/24/17 05:11 Ordered BASIC METABOLIC PANEL,BMP [CHEM] AM Lab 10/25/17 05:11 Ordered BASIC METABOLIC PANEL,BMP [CHEM] AM Lab 10/26/17 05:11 Ordered BASIC METABOLIC PANEL,BMP [CHEM] AM Lab 10/27/17 05:11 Ordered C-REACTIVE PROTEIN [CHEM] AM Lab 10/24/17 05:11 Ordered C-REACTIVE PROTEIN [CHEM] AM Lab 10/25/17 05:11 Ordered C-REACTIVE PROTEIN [CHEM] AM Lab 10/26/17 05:11 Ordered C-REACTIVE PROTEIN [CHEM] AM Lab 10/27/17 05:11 Ordered CBC WITH AUTO DIFF [HEME] AM Lab 10/24/17 05:11 Ordered CBC WITH AUTO DIFF [HEME] AM Lab 10/25/17 05:11 Ordered CBC WITH AUTO DIFF [HEME] AM Lab 10/26/17 05:11 Ordered CBC WITH AUTO DIFF [HEME] AM Lab 10/27/17 05:11 Ordered MAGNESIUM [CHEM] AM Lab 10/24/17 05:11 Ordered MAGNESIUM [CHEM] AM Lab 10/25/17 05:11 Ordered MAGNESIUM [CHEM] AM Lab 10/26/17 05:11 Ordered MAGNESIUM [CHEM] AM Lab 10/27/17 05:11 Ordered UA W/MICROSCOPIC [URIN] Stat Lab 10/23/17 13:05 Ordered Acetaminophen [Tylenol] Med 10/23/17 16:40 Ordered 650 mg PO Q4H PRN Acetaminophen/HYDROcodone [Sandwich 325-5 MG] Med 10/23/17 16:50 Ordered 1 tab PO Q4H PRN Aspirin [Halfprin] Med 10/24/17 09:00 Active 81 mg PO DAILY Bisacodyl [Dulcolax] Med 10/23/17 16:40 Ordered 5 mg PO DAILY PRN Docusate Sodium [Colace] Med 10/23/17 16:40 Ordered 100 mg PO BID PRN Docusate Sodium/Sennosides [Senna Plus] Med 10/23/17 16:40 Ordered 1 tab PO BID PRN HYDROmorphone [Dilaudid] Med 10/23/17 16:40 Ordered 0.5 mg IVPUSH Q2H PRN Lisinopril [Prinivil] Med 10/24/17 09:00 Active 10 mg PO DAILY Magnesium Hydroxide [Milk of Magnesia] Med 10/23/17 16:40 Ordered 30 ml PO Q12H PRN Ondansetron [Zofran] Med 10/23/17 16:40 Ordered 4 mg IV Q4H PRN Pantoprazole [ProTONIX IV] Med 10/23/17 16:45 Active 40 mg IVPUSH DAILY Polyethylene Glycol 3350 [MiraLAX] Med 10/23/17 16:40 Ordered 17 gm PO DAILY PRN Promethazine [Phenergan] Med 10/23/17 16:40 Ordered 25 mg PO Q6H PRN Sodium Chloride 0.9% [Normal Saline] 1,000 ml Med 10/23/17 13:15 Active IV ASDIRECTED Sodium Chloride 0.9% [Saline Flush] Med 10/23/17 11:30 Active 10 ml FLUSH ASDIRECTED PRN Sodium Chloride 0.9% [Saline Flush] Med 10/23/17 14:00 Active 10 ml FLUSH ONETIME PRN Temazepam [Restoril] Med 10/23/17 16:40 Ordered 7.5 mg PO BEDTIME PRN hydrALAZINE [Apresoline] Med 10/23/17 16:55 Ordered 10 mg IVPUSH Q4H PRN Antiembolic Hose [OM.PC] Per Unit Routine Oth 10/23/17 16:43 Ordered Peripheral IV Insertion Adult [OM.PC] Routine Oth 10/23/17 11:30 Ordered Resuscitation Status Routine Resus Stat 10/23/17 16:40 Ordered Medication Orders Acetaminophen (Tylenol) 650 mg PO Q4H PRN PRN Reason: Pain (Mild 1-3)/fever Hydrocodone Bitart/Acetaminophen (Sandwich 325-5 Mg) 1 tab PO Q4H PRN PRN Reason: Pain (moderate 4-6) Aspirin (Halfprin) 81 mg PO DAILY [facility] Bisacodyl (Dulcolax) 5 mg PO DAILY PRN PRN Reason: Constipation Docusate Sodium (Colace) 100 mg PO BID PRN PRN Reason: Constipation Hydralazine HCl (Apresoline) 10 mg IVPUSH Q4H PRN PRN Reason: Hypertension Hydromorphone HCl (Dilaudid) 0.5 mg IVPUSH Q2H PRN PRN Reason: Pain (severe 7-10) Sodium Chloride (Normal Saline) 1,000 mls @ 125 mls/hr IV ASDIRECTED [facility] Last Admin: 10/23/17 13:08 Dose: 125 mls/hr Lisinopril (Prinivil) 10 mg PO DAILY [facility] Magnesium Hydroxide (Milk Of Magnesia) 30 ml PO Q12H PRN PRN Reason: Constipation Ondansetron HCl (Zofran) 4 mg IV Q4H PRN PRN Reason: Nausea/Vomiting Pantoprazole Sodium (Protonix Iv) 40 mg IVPUSH DAILY [facility] Polyethylene Glycol (Miralax) 17 gm PO DAILY PRN PRN Reason: Constipation Promethazine HCl (Phenergan) 25 mg PO Q6H PRN PRN Reason: Nausea/Vomiting Senna/Docusate Sodium (Senna Plus) 1 tab PO BID PRN PRN Reason: Constipation Sodium Chloride (Saline Flush) 10 ml FLUSH ASDIRECTED PRN PRN Reason: Keep Vein Open Last Admin: 10/23/17 11:54 Dose: 10 ml Sodium Chloride (Saline Flush) 10 ml FLUSH ONETIME PRN PRN Reason: IV FLUSH Last Admin: 10/23/17 14:19 Dose: 10 ml Temazepam (Restoril) 7.5 mg PO BEDTIME PRN PRN Reason: Sleep Assessment/Plan Comment:: I/P: Diverticulitis with Abscess -Risk factors: Diagnosed with Diverticulitis via CT on Saturday in ED; unable to keep antibiotics down -Abdominal pain 02/10, N/V/D, decreased appetite in ED -WBC 14.47, CRP 18 -CT in ED--> worsening of diverticulitis, 2.2cm abscess -IVF -Levoquin and Flagyl IV -Pain medication PRN -Repeat CT in 2 days -NPO except sips of water -Last colonoscopy 5 years ago -Recommend f/u with GI for colonoscopy Chronic: HTN--> Continue Lisinopril GERD Anxiety Plan: Transfered to Med surg today She remains stable and continues to improve clinically Other orders as indicated above Routine AM labs NPO except sips of water DVT Prophylaxis: KELBY bradley, on ASA GI Prophylaxis: Protonix Ambulated as tolerated Code Status:Full Code; PCP: Johanna Hendrix
[2017-10-23] MEDS: Pantoprazole 40 MG Vial IVPUSH SCH (17:40)
[2017-10-23] MEDS: Levofloxacin/Dextrose 5%-Water 750 MG in Premix Bag 1 BAG IV SCH (17:40)
[2017-10-23] MEDS: HYDROmorphone 0.5 MG/0.5 ML SYRINGE IVPUSH PRN ×2 (18:52→21:13)
[2017-10-23] MEDS: metroNIDAZOLE/Normal Saline 500 MG in Premix Bag 1 BAG IV SCH (19:43)
[2017-10-23] MEDS: Ondansetron 4 MG/2 ML SDV IV PRN (19:43)
[2017-10-23] MEDS: Acetaminophen/HYDROcodone 325-5 MG Tab PO PRN (21:14)
[2017-10-23] MEDS ORDERED: Metoprolol Tartrate 5 MG/5 ML SDV IVPUSH PRN (23:34)
[2017-10-23] MEDS ORDERED: LORazepam 2 MG/ML SDV IVPUSH PRN (23:34)
[2017-10-24] MEDS: Potassium Chloride 20 MEQ Tab.ER PO SCH ×2 (00:38→03:56)
[2017-10-24] MEDS: Acetaminophen/HYDROcodone 325-5 MG Tab PO PRN ×5 (01:51→21:26)
[2017-10-24] MEDS: metroNIDAZOLE/Normal Saline 500 MG in Premix Bag 1 BAG IV SCH ×3 (03:55→18:06)
[2017-10-24] MEDS: Sodium Chloride 0.9% 1,000 ML IV SCH ×3 (06:49→23:07)
[2017-10-24] MEDS: Aspirin 81 MG Tab.EC PO SCH (08:51)
[2017-10-24] MEDS: Lisinopril 10 MG Tab PO SCH (08:51)
[2017-10-24] MEDS: Pantoprazole 40 MG Vial IVPUSH SCH (08:52)
[2017-10-24] MEDS ORDERED: Magnesium Sulfate/Water 2 GM in Premix Bag 1 BAG IV ONE (09:00)
--- NOTE | 2017-10-24 11:42 | PCM.PN ---
- General Info Date of Service: 10/24/17 Admission Dx/Problem (Free Text): Admission Diagnosis/Problem Admission Diagnosis/Problem Diverticulitis Subjective Update: In to see Darcy today. She is lying in bed. Overall she is doing quite well and states she is feeling better. She has no complaints, except for 7/10 abdominal pain, stable from yesterday. She has been sleeping well. Her appetite is returning- start clear liquid diet today at lunch. Ambulating as tolerated. Pain is controlled. No Fever, chills, chest pain, nausea, vomiting, diarrhea. No concerns from nursing. Functional Status: Reports: Pain Controlled, Tolerating Diet, Ambulating, Urinating - Review of Systems General: Reports: No Symptoms. Denies: Fever, Chills HEENT: Reports: No Symptoms Pulmonary: Reports: No Symptoms. Denies: Shortness of Breath Cardiovascular: Reports: No Symptoms Gastrointestinal: Reports: Abdominal Pain (7/10), Nausea. Denies: Diarrhea, Vomiting Genitourinary: Reports: No Symptoms. Denies: Dysuria, Frequency, Burning, Pain Musculoskeletal: Reports: No Symptoms Skin: Reports: No Symptoms Neurological: Reports: No Symptoms Psychiatric: Reports: No Symptoms - Patient Data Vitals - Most Recent: Last Vital Signs Temp 98.6 F 10/24/17 07:51 Pulse 83 10/24/17 07:51 Resp 16 10/24/17 03:59 BP 126/63 10/24/17 08:51 Pulse Ox 93 L 10/24/17 07:51 Weight - Most Recent: 133 lb 6.4 oz I&O - Last 24 Hours: Intake & Output 10/23/17 10/24/17 10/24/17 22:59 06:59 14:59 Intake Total 1902 Output Total 2350 Balance -448 Lab Results Last 24 Hours: Laboratory Results - last 24 hr 10/23/17 10/23/17 10/23/17 Range/Units 11:38 11:38 13:05 WBC 14.47 H (3.98-10.04) K/mm3 RBC 4.29 (3.98-5.22) M/mm3 Hgb 12.6 (11.2-15.7) gm/L Hct 38.1 (34.1-44.9) % MCV 88.8 (79.4-94.8) fl MCH 29.4 (25.6-32.2) pg MCHC 33.1 (32.2-35.5) g/dl RDW Std Deviation 37.8 (36.4-46.3) fL Plt Count 265 (182-369) K/mm3 MPV 9.7 (9.4-12.3) fl Neut % (Auto) (34.0-71.1) % Lymph % (Auto) (19.3-51.7) % [place] % (Auto) (4.7-12.5) % Eos % (Auto) (0.7-5.8) Baso % (Auto) (0.1-1.2) % Neut # (Auto) (1.56-6.13) K/mm3 Lymph # (Auto) (1.18-3.74) K/mm3 [place] # (Auto) (0.24-0.36) K/mm3 Eos # (Auto) (0.04-0.36) K/mm3 Baso # (Auto) (0.01-0.08) K/mm3 Neutrophils % (Manual) 86 H (40-60) % Band Neutrophils % 0 (0-10) % Lymphocytes % (Manual) 11 L (20-40) % Atypical Lymphs % 0 % Monocytes % (Manual) 3 (2-10) % Eosinophils % (Manual) 0 L (0.7-5.8) % Basophils % (Manual) 0 L (0.1-1.2) Differential Comment See note Platelet Estimate Adequate RBC Morph Comment Normal Sodium 129 L (136-145) mEq/L Potassium 3.7 (3.5-5.1) mEq/L Chloride 92 L (98-107) mEq/L Carbon Dioxide 25 (21-32) mEq/L Anion Gap 15.7 H (5-15) BUN 7 (7-18) mg/dL Creatinine 0.8 (0.55-1.02) mg/dL Est Cr Clr Drug Dosing 54.31 mL/min Estimated GFR (MDRD) > 60 (>60) mL/min BUN/Creatinine Ratio 8.8 L (14-18) Glucose 79 L (80-115) mg/dL Calcium 8.5 (8.5-10.1) mg/dL Magnesium (1.8-2.4) mg/dl Total Bilirubin 0.8 (0.2-1.0) mg/dL AST 21 (15-37) U/L ALT 26 (14-59) U/L Alkaline Phosphatase 79 (46-116) U/L C-Reactive Protein 18.0 H* (<1.0) mg/dL Total Protein 6.8 (6.4-8.2) g/dl Albumin 3.3 L (3.4-5.0) g/dl Globulin 3.5 gm/dL Albumin/Globulin Ratio 0.9 L (1-2) Urine Color Light yellow (Yellow) Urine Appearance Clear (Clear) Urine pH 6.0 (5.0-8.0) Ur Specific [place] 1.015 (1.005-1.030) Urine Protein Negative (Negative) Urine Glucose (UA) Negative (Negative) Urine Ketones 3+ H (Negative) Urine Occult Blood Negative (Negative) Urine Nitrite Negative (Negative) Urine Bilirubin Negative (Negative) Urine Urobilinogen 0.2 (0.2-1.0) Ur Leukocyte Esterase Negative (Negative) Urine RBC 0-5 (0-5) /hpf Urine WBC 0-5 (0-5) /hpf Ur Epithelial Cells 0-5 (0-5) /hpf Urine Bacteria Not seen (FEW) /hpf Urine Mucus Not seen (FEW) /hpf 10/24/17 10/24/17 Range/Units 05:47 05:47 WBC 11.61 H (3.98-10.04) K/mm3 RBC 3.87 L (3.98-5.22) M/mm3 Hgb 11.5 (11.2-15.7) gm/L Hct 35.0 (34.1-44.9) % MCV 90.4 (79.4-94.8) fl MCH 29.7 (25.6-32.2) pg MCHC 32.9 (32.2-35.5) g/dl RDW Std Deviation 38.8 (36.4-46.3) fL Plt Count 248 (182-369) K/mm3 MPV 9.4 (9.4-12.3) fl Neut % (Auto) 75.7 H (34.0-71.1) % Lymph % (Auto) 14.3 L (19.3-51.7) % [place] % (Auto) 8.2 (4.7-12.5) % Eos % (Auto) 1.3 (0.7-5.8) Baso % (Auto) 0.2 (0.1-1.2) % Neut # (Auto) 8.80 H (1.56-6.13) K/mm3 Lymph # (Auto) 1.66 (1.18-3.74) K/mm3 [place] # (Auto) 0.95 H (0.24-0.36) K/mm3 Eos # (Auto) 0.15 (0.04-0.36) K/mm3 Baso # (Auto) 0.02 (0.01-0.08) K/mm3 Neutrophils % (Manual) (40-60) % Band Neutrophils % (0-10) % Lymphocytes % (Manual) (20-40) % Atypical Lymphs % % Monocytes % (Manual) (2-10) % Eosinophils % (Manual) (0.7-5.8) % Basophils % (Manual) (0.1-1.2) Differential Comment Platelet Estimate RBC Morph Comment Sodium 135 L (136-145) mEq/L Potassium 4.9 (3.5-5.1) mEq/L Chloride 104 (98-107) mEq/L Carbon Dioxide 21 (21-32) mEq/L Anion Gap 14.9 (5-15) BUN 6 L (7-18) mg/dL Creatinine 0.6 (0.55-1.02) mg/dL Est Cr Clr Drug Dosing 72.42 mL/min Estimated GFR (MDRD) > 60 (>60) mL/min BUN/Creatinine Ratio 10.0 L (14-18) Glucose 67 L (80-115) mg/dL Calcium 7.9 L (8.5-10.1) mg/dL Magnesium 1.6 L (1.8-2.4) mg/dl Total Bilirubin (0.2-1.0) mg/dL AST (15-37) U/L ALT (14-59) U/L Alkaline Phosphatase (46-116) U/L C-Reactive Protein 17.2 H* (<1.0) mg/dL Total Protein (6.4-8.2) g/dl Albumin (3.4-5.0) g/dl Globulin gm/dL Albumin/Globulin Ratio (1-2) Urine Color (Yellow) Urine Appearance (Clear) Urine pH (5.0-8.0) Ur Specific [place] (1.005-1.030) Urine Protein (Negative) Urine Glucose (UA) (Negative) Urine Ketones (Negative) Urine Occult Blood (Negative) Urine Nitrite (Negative) Urine Bilirubin (Negative) Urine Urobilinogen (0.2-1.0) Ur Leukocyte Esterase (Negative) Urine RBC (0-5) /hpf Urine WBC (0-5) /hpf Ur Epithelial Cells (0-5) /hpf Urine Bacteria (FEW) /hpf Urine Mucus (FEW) /hpf Med Orders - Current: Current Medications Acetaminophen (Tylenol) 650 mg PO Q4H PRN PRN Reason: Pain (Mild 1-3)/fever Hydrocodone Bitart/Acetaminophen ([place] 325-5 Mg) 1 tab PO Q4H PRN PRN Reason: Pain (moderate 4-6) Last Admin: 10/24/17 11:16 Dose: 1 tab Aspirin (Halfprin) 81 mg PO DAILY [facility] Last Admin: 10/24/17 08:51 Dose: 81 mg Bisacodyl (Dulcolax) 5 mg PO DAILY PRN PRN Reason: Constipation Docusate Sodium (Colace) 100 mg PO BID PRN PRN Reason: Constipation Hydralazine HCl (Apresoline) 20 mg IVPUSH Q4H PRN PRN Reason: Hypertension Hydromorphone HCl (Dilaudid) 0.5 mg IVPUSH Q2H PRN PRN Reason: Pain (severe 7-10) Last Admin: 10/23/17 21:13 Dose: 0.5 mg Sodium Chloride (Normal Saline) 1,000 mls @ 125 mls/hr IV ASDIRECTED [facility] Last Admin: 10/24/17 06:49 Dose: 125 mls/hr Levofloxacin/Dextrose 750 mg/ (Premix) 150 mls @ 100 mls/hr IV Q24H [facility] Last Admin: 10/23/17 17:40 Dose: 100 mls/hr Metronidazole 500 mg/ Premix 100 mls @ 100 mls/hr IV Q8H [facility] Last Admin: 10/24/17 03:55 Dose: 100 mls/hr Lisinopril (Prinivil) 10 mg PO DAILY [facility] Last Admin: 10/24/17 08:51 Dose: 10 mg Lorazepam (Ativan) 2 mg IVPUSH Q4H PRN PRN Reason: Seizures Magnesium Hydroxide (Milk Of Magnesia) 30 ml PO Q12H PRN PRN Reason: Constipation Magnesium Sulfate (Pharmacy To Dose - Magnesium Replacement) 1 dose .XX ASDIRECTED [facility] Metoprolol Tartrate (Lopressor) 5 mg IVPUSH Q4H PRN PRN Reason: Tachycardia Ondansetron HCl (Zofran) 4 mg IV Q4H PRN PRN Reason: Nausea/Vomiting Last Admin: 10/23/17 19:43 Dose: 4 mg Pantoprazole Sodium (Protonix Iv) 40 mg IVPUSH DAILY [facility] Last Admin: 10/24/17 08:52 Dose: 40 mg Polyethylene Glycol (Miralax) 17 gm PO DAILY PRN PRN Reason: Constipation Potassium Chloride (Pharmacy To Dose - Potassium Replacement) 1 dose .XX ASDIRECTED [facility] Promethazine HCl (Phenergan) 25 mg PO Q6H PRN PRN Reason: Nausea/Vomiting Last Admin: 10/23/17 21:26 Dose: 25 mg Senna/Docusate Sodium (Senna Plus) 1 tab PO BID PRN PRN Reason: Constipation Sodium Chloride (Saline Flush) 10 ml FLUSH ASDIRECTED PRN PRN Reason: Keep Vein Open Last Admin: 10/23/17 11:54 Dose: 10 ml Sodium Chloride (Saline Flush) 10 ml FLUSH ONETIME PRN PRN Reason: IV FLUSH Last Admin: 10/23/17 14:19 Dose: 10 ml Temazepam (Restoril) 7.5 mg PO BEDTIME PRN PRN Reason: Sleep Discontinued Medications Diatrizoate Meglum/Diatrizoate Sod (Gastrografin 37%) 90 ml PO ONETIME ONE Stop: 10/23/17 14:01 Last Admin: 10/23/17 14:19 Dose: 90 ml Hydralazine HCl (Apresoline) 10 mg IVPUSH Q4H PRN PRN Reason: Hypertension Hydromorphone HCl (Dilaudid) 0.5 mg IVPUSH ONETIME ONE Stop: 10/23/17 11:31 Last Admin: 10/23/17 11:53 Dose: 0.5 mg Hydromorphone HCl (Dilaudid) 0.5 mg IVPUSH ONETIME ONE Stop: 10/23/17 14:45 Last Admin: 10/23/17 15:01 Dose: 0.5 mg Sodium Chloride (Normal Saline) 1,000 mls @ 999 mls/hr IV ONETIME ONE Stop: 10/23/17 12:30 Last Admin: 10/23/17 11:52 Dose: 999 mls/hr Magnesium Sulfate 2 gm/ Premix 50 mls @ 25 mls/hr IV ONETIME ONE Stop: 10/24/17 10:59 Last Admin: 10/24/17 10:05 Dose: 25 mls/hr Iopamidol (Isovue-300 (61%)) 100 ml IVPUSH ONETIME ONE Stop: 10/23/17 14:01 Last Admin: 10/23/17 14:19 Dose: 100 ml Metoclopramide HCl (Reglan) 5 mg IVPUSH ONETIME ONE Stop: 10/23/17 13:05 Last Admin: 10/23/17 13:09 Dose: 5 mg Ondansetron HCl (Zofran) 4 mg IVPUSH ONETIME ONE Stop: 10/23/17 11:31 Last Admin: 10/23/17 11:53 Dose: 4 mg Ondansetron HCl (Zofran) 4 mg IVPUSH ONETIME ONE Stop: 10/23/17 14:45 Last Admin: 10/23/17 15:00 Dose: 4 mg Potassium Chloride (Klor-Con M20) 40 meq PO Q4H [facility] Stop: 10/24/17 04:01 Last Admin: 10/24/17 03:56 Dose: 40 meq - Exam Quality Assessment: DVT Prophylaxis. No: Supplemental Oxygen General: Alert, Oriented, Cooperative, No Acute Distress HEENT: Pupils Equal, Pupils Reactive, EOMI, Mucous Membr. Moist/[place] Neck: Supple Lungs: Clear to Auscultation, Normal Respiratory Effort Cardiovascular: Regular Rate, Regular Rhythm GI/Abdominal Exam: Normal Bowel Sounds, Soft, No Organomegaly, No Distention, No Abnormal Bruit, No Mass, Pelvis Stable, Tender (7/10 pain) (Female) Exam: Deferred Back Exam: Normal Inspection, Full Range of Motion Extremities: Normal Inspection, Normal Range of Motion, Non-Tender, No Pedal Edema, Normal Capillary Refill Peripheral Pulses: 3+: Posterior Tibial (L), Posterior Tibial (R), Dorsalis Pedis (L), Dorsalis Pedis (R) Skin: Warm, Dry, Intact Neurological: No New Focal Deficit Psy/Mental Status: Alert, Normal Affect, Normal Mood - Problem List & Annotations (1) Colonic diverticular abscess SNOMED Code(s): 288347520 Code(s): K57.20 - DVTRCLI OF LG INT W PERFORATION AND ABSCESS W/O BLEEDING Status: Acute Priority: High Current Visit: Yes (2) Diverticulitis SNOMED Code(s): 210079209 Code(s): K57.92 - DVTRCLI OF INTEST, PART UNSP, W/O PERF OR ABSCESS W/O BLEED Status: Acute Priority: High Current Visit: Yes - Problem List Review Problem List Initiated/Reviewed/Updated: Yes - My Orders Last 24 Hours: My Active Orders 10/23/17 16:40 Height and Weight [RC] 04 October Shower [RC] .PRN Oxygen Therapy [RC] PRN VTE/DVT Education [RC] DAILY Vital Signs [RC] Q4HR Consult to Spiritual Care [CONS] Routine Acetaminophen [Tylenol] 650 mg PO Q4H PRN Bisacodyl [Dulcolax] 5 mg PO DAILY PRN Docusate Sodium [Colace] 100 mg PO BID PRN Docusate Sodium/Sennosides [Senna Plus] 1 tab PO BID PRN HYDROmorphone [Dilaudid] 0.5 mg IVPUSH Q2H PRN Magnesium Hydroxide [Milk of Magnesia] 30 ml PO Q12H PRN Ondansetron [Zofran] 4 mg IV Q4H PRN Polyethylene Glycol 3350 [MiraLAX] 17 gm PO DAILY PRN Promethazine [Phenergan] 25 mg PO Q6H PRN Temazepam [Restoril] 7.5 mg PO BEDTIME PRN Resuscitation Status Routine 10/23/17 16:42 Intake and Output [RC] 04,16 10/23/17 16:43 Ambulate [RC] 09,15,20 Antiembolic Hose [OM.PC] Per Unit Routine 10/23/17 16:45 Pantoprazole [ProTONIX IV] 40 mg IVPUSH DAILY 10/23/17 16:50 Acetaminophen/HYDROcodone [[place] 325-5 MG] 1 tab PO Q4H PRN 10/23/17 17:00 Levofloxacin/Dextrose 5%-Water [Levaquin in D5W 750 MG/150 ML] 750 mg Premix Bag 1 bag IV Q24H 10/23/17 19:00 metroNIDAZOLE/Normal Saline [Flagyl 500 MG in NS 100 ML] 500 mg Premix Bag 1 bag IV Q8H 10/24/17 09:00 Aspirin [Halfprin] 81 mg PO DAILY Lisinopril [Prinivil] 10 mg PO DAILY 10/24/17 Lunch Clear Liquid Diet [DIET] 10/25/17 05:11 Abdomen w Cont [CT] Routine BASIC METABOLIC PANEL,BMP [CHEM] AM C-REACTIVE PROTEIN [CHEM] AM CBC WITH AUTO DIFF [HEME] AM MAGNESIUM [CHEM] AM 10/26/17 05:11 BASIC METABOLIC PANEL,BMP [CHEM] AM C-REACTIVE PROTEIN [CHEM] AM CBC WITH AUTO DIFF [HEME] AM MAGNESIUM [CHEM] AM 10/27/17 05:11 BASIC METABOLIC PANEL,BMP [CHEM] AM C-REACTIVE PROTEIN [CHEM] AM CBC WITH AUTO DIFF [HEME] AM MAGNESIUM [CHEM] AM - Plan Plan:: I/P: Diverticulitis with Abscess, Improving -Risk factors: Diagnosed with Diverticulitis via CT on Saturday in ED; unable to keep antibiotics down -Abdominal pain 9/10, N/V/D, decreased appetite in ED --> 7/10 pain, improving symptoms -WBC 14.47-->11.61, CRP 18-->17.2 -CT in ED--> worsening of diverticulitis, 2.2cm abscess -IVF -Levoquin and Flagyl IV -Pain medication PRN -Repeat CT -NPO except sips of water--> advance to clear liquid diet today -Last colonoscopy 5 years ago -Recommend f/u with GI for colonoscopy Chronic: HTN--> Continue Lisinopril GERD Anxiety Plan: Transfered to Med surg today She remains stable and continues to improve clinically Other orders as indicated above Routine AM labs Advance diet as tolerated DVT Prophylaxis: KELBY bradley, on ASA GI Prophylaxis: Protonix Ambulated as tolerated Code Status:Full Code; PCP: Johanna Hendrix
[2017-10-24] MEDS: Levofloxacin/Dextrose 5%-Water 750 MG in Premix Bag 1 BAG IV SCH (16:04)
[2017-10-25] MEDS: Acetaminophen/HYDROcodone 325-5 MG Tab PO PRN ×4 (03:23→21:31)
[2017-10-25] MEDS: metroNIDAZOLE/Normal Saline 500 MG in Premix Bag 1 BAG IV SCH ×3 (03:24→18:34)
[2017-10-25] MEDS: Sodium Chloride 0.9% 1,000 ML IV SCH (07:37)
[2017-10-25] MEDS: Pantoprazole 40 MG Vial IVPUSH SCH (08:17)
[2017-10-25] MEDS: Aspirin 81 MG Tab.EC PO SCH (08:17)
[2017-10-25] MEDS: Lisinopril 10 MG Tab PO SCH (08:17)
[2017-10-25] MEDS ORDERED: Bumetanide 1 MG/4 ML MDV IVPUSH ONE (10:31)
--- NOTE | 2017-10-25 11:55 | PCM.PN ---
- General Info Date of Service: 10/25/17 Admission Dx/Problem (Free Text): Admission Diagnosis/Problem Admission Diagnosis/Problem Diverticulitis Subjective Update: In to see Darcy today. She is lying in bed. Overall she is doing quite well and states she is feeling better. She has no complaints, except for 7/10 abdominal pain, stable and some diarrhea. PRN pain medication has been helping. We will start a probiotic for the diarrhea. She has been sleeping well. Her appetite is returning- start full liquid diet today at lunch. Ambulating as tolerated. Pain is controlled. No Fever, chills, chest pain, nausea, vomiting, diarrhea. No concerns from nursing. Functional Status: Reports: Pain Controlled, Tolerating Diet, Ambulating, Urinating - Review of Systems General: Reports: No Symptoms. Denies: Fever, Chills HEENT: Reports: No Symptoms Pulmonary: Reports: No Symptoms. Denies: Shortness of Breath, Cough Cardiovascular: Reports: No Symptoms. Denies: Chest Pain, Palpitations Gastrointestinal: Reports: Abdominal Pain (7/10, stable), Diarrhea. Denies: Constipation, Nausea, Vomiting Genitourinary: Reports: No Symptoms. Denies: Dysuria, Frequency, Burning, Pain Musculoskeletal: Reports: No Symptoms Skin: Reports: No Symptoms Neurological: Reports: No Symptoms Psychiatric: Reports: No Symptoms - Patient Data Vitals - Most Recent: Last Vital Signs Temp 98.1 F 10/25/17 03:29 Pulse 84 10/25/17 08:16 Resp 20 10/25/17 08:16 BP 155/84 H 10/25/17 08:17 Pulse Ox 95 10/25/17 08:16 Weight - Most Recent: 133 lb 4 oz I&O - Last 24 Hours: Intake & Output 10/24/17 10/25/17 10/25/17 22:59 06:59 14:59 Intake Total 1297 2107 180 Output Total 2200 2700 Balance -903 -593 180 Lab Results Last 24 Hours: Laboratory Results - last 24 hr 10/25/17 10/25/17 Range/Units 05:30 05:30 WBC 9.89 (3.98-10.04) K/mm3 RBC 3.81 L (3.98-5.22) M/mm3 Hgb 11.3 (11.2-15.7) gm/L Hct 34.2 (34.1-44.9) % MCV 89.8 (79.4-94.8) fl MCH 29.7 (25.6-32.2) pg MCHC 33.0 (32.2-35.5) g/dl RDW Std Deviation 38.1 (36.4-46.3) fL Plt Count 267 (182-369) K/mm3 MPV 9.6 (9.4-12.3) fl Neut % (Auto) 77.0 H (34.0-71.1) % Lymph % (Auto) 14.1 L (19.3-51.7) % [place] % (Auto) 6.9 (4.7-12.5) % Eos % (Auto) 1.6 (0.7-5.8) Baso % (Auto) 0.1 (0.1-1.2) % Neut # (Auto) 7.62 H (1.56-6.13) K/mm3 Lymph # (Auto) 1.39 (1.18-3.74) K/mm3 [place] # (Auto) 0.68 H (0.24-0.36) K/mm3 Eos # (Auto) 0.16 (0.04-0.36) K/mm3 Baso # (Auto) 0.01 (0.01-0.08) K/mm3 Sodium 135 L (136-145) mEq/L Potassium 3.7 (3.5-5.1) mEq/L Chloride 101 (98-107) mEq/L Carbon Dioxide 25 (21-32) mEq/L Anion Gap 12.7 (5-15) BUN 3 L (7-18) mg/dL Creatinine 0.6 (0.55-1.02) mg/dL Est Cr Clr Drug Dosing 72.42 mL/min Estimated GFR (MDRD) > 60 (>60) mL/min BUN/Creatinine Ratio 5.0 L (14-18) Glucose 82 (80-115) mg/dL Calcium 8.0 L (8.5-10.1) mg/dL Magnesium 1.7 L (1.8-2.4) mg/dl C-Reactive Protein 17.7 H* (<1.0) mg/dL Med Orders - Current: Current Medications Acetaminophen (Tylenol) 650 mg PO Q4H PRN PRN Reason: Pain (Mild 1-3)/fever Hydrocodone Bitart/Acetaminophen ([place] 325-5 Mg) 1 tab PO Q4H PRN PRN Reason: Pain (moderate 4-6) Last Admin: 10/25/17 07:35 Dose: 1 tab Aspirin (Halfprin) 81 mg PO DAILY [facility] Last Admin: 10/25/17 08:17 Dose: 81 mg Bisacodyl (Dulcolax) 5 mg PO DAILY PRN PRN Reason: Constipation Docusate Sodium (Colace) 100 mg PO BID PRN PRN Reason: Constipation Hydralazine HCl (Apresoline) 20 mg IVPUSH Q4H PRN PRN Reason: Hypertension Hydromorphone HCl (Dilaudid) 0.5 mg IVPUSH Q2H PRN PRN Reason: Pain (severe 7-10) Last Admin: 10/23/17 21:13 Dose: 0.5 mg Levofloxacin/Dextrose 750 mg/ (Premix) 150 mls @ 100 mls/hr IV Q24H [facility] Last Admin: 10/24/17 16:04 Dose: 100 mls/hr Metronidazole 500 mg/ Premix 100 mls @ 100 mls/hr IV Q8H [facility] Last Admin: 10/25/17 10:58 Dose: 100 mls/hr Sodium Chloride (Normal Saline) 1,000 mls @ 50 mls/hr IV ASDIRECTED [facility] Last Admin: 10/25/17 07:37 Dose: 50 mls/hr Lisinopril (Prinivil) 10 mg PO DAILY [facility] Last Admin: 10/25/17 08:17 Dose: 10 mg Lorazepam (Ativan) 2 mg IVPUSH Q4H PRN PRN Reason: Seizures Magnesium Hydroxide (Milk Of Magnesia) 30 ml PO Q12H PRN PRN Reason: Constipation Magnesium Oxide (Magnesium Oxide) 400 mg PO TID [facility] Stop: 10/25/17 21:01 Magnesium Sulfate (Pharmacy To Dose - Magnesium Replacement) 1 dose .XX ASDIRECTED [facility] Metoprolol Tartrate (Lopressor) 5 mg IVPUSH Q4H PRN PRN Reason: Tachycardia Ondansetron HCl (Zofran) 4 mg IV Q4H PRN PRN Reason: Nausea/Vomiting Last Admin: 10/23/17 19:43 Dose: 4 mg Pantoprazole Sodium (Protonix Iv) 40 mg IVPUSH DAILY [facility] Last Admin: 10/25/17 08:17 Dose: 40 mg Polyethylene Glycol (Miralax) 17 gm PO DAILY PRN PRN Reason: Constipation Potassium Chloride (Pharmacy To Dose - Potassium Replacement) 1 dose .XX ASDIRECTED [facility] Promethazine HCl (Phenergan) 25 mg PO Q6H PRN PRN Reason: Nausea/Vomiting Last Admin: 10/23/17 21:26 Dose: 25 mg Senna/Docusate Sodium (Senna Plus) 1 tab PO BID PRN PRN Reason: Constipation Sodium Chloride (Saline Flush) 10 ml FLUSH ASDIRECTED PRN PRN Reason: Keep Vein Open Last Admin: 10/23/17 11:54 Dose: 10 ml Sodium Chloride (Saline Flush) 10 ml FLUSH ONETIME PRN PRN Reason: IV FLUSH Last Admin: 10/23/17 14:19 Dose: 10 ml Temazepam (Restoril) 7.5 mg PO BEDTIME PRN PRN Reason: Sleep Discontinued Medications Bumetanide (Bumex) 0.5 mg IVPUSH ONETIME ONE Stop: 10/25/17 10:32 Last Admin: 10/25/17 10:53 Dose: 0.5 mg Diatrizoate Meglum/Diatrizoate Sod (Gastrografin 37%) 90 ml PO ONETIME ONE Stop: 10/23/17 14:01 Last Admin: 10/23/17 14:19 Dose: 90 ml Hydralazine HCl (Apresoline) 10 mg IVPUSH Q4H PRN PRN Reason: Hypertension Hydromorphone HCl (Dilaudid) 0.5 mg IVPUSH ONETIME ONE Stop: 10/23/17 11:31 Last Admin: 10/23/17 11:53 Dose: 0.5 mg Hydromorphone HCl (Dilaudid) 0.5 mg IVPUSH ONETIME ONE Stop: 10/23/17 14:45 Last Admin: 10/23/17 15:01 Dose: 0.5 mg Sodium Chloride (Normal Saline) 1,000 mls @ 999 mls/hr IV ONETIME ONE Stop: 10/23/17 12:30 Last Admin: 10/23/17 11:52 Dose: 999 mls/hr Sodium Chloride (Normal Saline) 1,000 mls @ 50 mls/hr IV ASDIRECTED [facility] Last Admin: 10/24/17 23:07 Dose: 125 mls/hr Magnesium Sulfate 2 gm/ Premix 50 mls @ 25 mls/hr IV ONETIME ONE Stop: 10/24/17 10:59 Last Admin: 10/24/17 10:05 Dose: 25 mls/hr Iopamidol (Isovue-300 (61%)) 100 ml IVPUSH ONETIME ONE Stop: 10/23/17 14:01 Last Admin: 10/23/17 14:19 Dose: 100 ml Metoclopramide HCl (Reglan) 5 mg IVPUSH ONETIME ONE Stop: 10/23/17 13:05 Last Admin: 10/23/17 13:09 Dose: 5 mg Ondansetron HCl (Zofran) 4 mg IVPUSH ONETIME ONE Stop: 10/23/17 11:31 Last Admin: 10/23/17 11:53 Dose: 4 mg Ondansetron HCl (Zofran) 4 mg IVPUSH ONETIME ONE Stop: 10/23/17 14:45 Last Admin: 10/23/17 15:00 Dose: 4 mg Potassium Chloride (Klor-Con M20) 40 meq PO Q4H [facility] Stop: 10/24/17 04:01 Last Admin: 10/24/17 03:56 Dose: 40 meq - Exam Quality Assessment: DVT Prophylaxis. No: Supplemental Oxygen General: Alert, Oriented, Cooperative, Mild Distress HEENT: Pupils Equal, Pupils Reactive, EOMI, Mucous Membr. Moist/[place] Neck: Supple Lungs: Normal Respiratory Effort, Crackles (mild in the posterior bases) Cardiovascular: Regular Rate, Regular Rhythm GI/Abdominal Exam: Normal Bowel Sounds, Soft, No Organomegaly, No Distention, No Abnormal Bruit, No Mass, Pelvis Stable, Tender (7/10 pain) (Female) Exam: Deferred Back Exam: Normal Inspection, Full Range of Motion Extremities: Normal Inspection, Normal Range of Motion, Non-Tender, No Pedal Edema, Normal Capillary Refill Peripheral Pulses: 3+: Posterior Tibial (L), Posterior Tibial (R), Dorsalis Pedis (L), Dorsalis Pedis (R) Skin: Warm, Dry, Intact Neurological: No New Focal Deficit Psy/Mental Status: Alert, Normal Affect, Normal Mood - Problem List & Annotations (1) Colonic diverticular abscess SNOMED Code(s): 448007641 Code(s): K57.20 - DVTRCLI OF LG INT W PERFORATION AND ABSCESS W/O BLEEDING Status: Acute Priority: High Current Visit: Yes (2) Diverticulitis SNOMED Code(s): 753772870 Code(s): K57.92 - DVTRCLI OF INTEST, PART UNSP, W/O PERF OR ABSCESS W/O BLEED Status: Acute Priority: High Current Visit: Yes - Problem List Review Problem List Initiated/Reviewed/Updated: Yes - My Orders Last 24 Hours: My Active Orders 10/26/17 05:11 BASIC METABOLIC PANEL,BMP [CHEM] AM C-REACTIVE PROTEIN [CHEM] AM CBC WITH AUTO DIFF [HEME] AM MAGNESIUM [CHEM] AM 10/26/17 14:00 Abdomen Pelvis w Cont [CT] Routine 10/27/17 05:11 BASIC METABOLIC PANEL,BMP [CHEM] AM C-REACTIVE PROTEIN [CHEM] AM CBC WITH AUTO DIFF [HEME] AM MAGNESIUM [CHEM] AM - Plan Plan:: I/P: Diverticulitis with Abscess, Improving -Risk factors: Diagnosed with Diverticulitis via CT on Saturday in ED; unable to keep antibiotics down -Abdominal pain 9/10, N/V/D, decreased appetite in ED --> 7/10 pain, improving symptoms -WBC 14.47-->11.61-->9.89, CRP 18-->17.2-->17.7 -CT in ED--> worsening of diverticulitis, 2.2cm abscess -IVF -Levoquin and Flagyl IV -Pain medication PRN -Repeat CT tomorrow -Advance to full liquid diet today -Last colonoscopy 5 years ago -Recommend f/u with GI for colonoscopy Chronic: HTN--> Continue Lisinopril GERD Anxiety Plan: Transfered to Med surg today She remains stable and continues to improve clinically Other orders as indicated above Routine AM labs Advance diet as tolerated PT consult DVT Prophylaxis: KELBY bradley, on ASA GI Prophylaxis: Protonix Ambulated as tolerated Code Status:Full Code; PCP: Johanna Hendrix
[2017-10-25] MEDS: Saccharomyces Boulardii (Probiotic) 250 MG Cap PO SCH ×2 (12:51→21:30)
[2017-10-25] MEDS: Magnesium Oxide 400 MG Tab PO SCH ×3 (12:51→21:31)
[2017-10-25] MEDS: Levofloxacin/Dextrose 5%-Water 750 MG in Premix Bag 1 BAG IV SCH (16:57)
[2017-10-26] MEDS: metroNIDAZOLE/Normal Saline 500 MG in Premix Bag 1 BAG IV SCH ×3 (02:00→20:57)
[2017-10-26] MEDS: Acetaminophen/HYDROcodone 325-5 MG Tab PO PRN ×3 (03:49→21:00)
[2017-10-26] MEDS: Sodium Chloride 0.9% 1,000 ML IV SCH ×2 (03:59→23:42)
[2017-10-26] MEDS: Saccharomyces Boulardii (Probiotic) 250 MG Cap PO SCH ×2 (08:40→20:59)
[2017-10-26] MEDS: Pantoprazole 40 MG Vial IVPUSH SCH (08:40)
[2017-10-26] MEDS: Aspirin 81 MG Tab.EC PO SCH (08:40)
[2017-10-26] MEDS: Lisinopril 10 MG Tab PO SCH (08:40)
--- NOTE | 2017-10-26 10:09 | PCM.PN ---
- General Info Date of Service: 10/26/17 Subjective Update: Patient tolerated breakfast without complaints; has a repeat CT of abd/pelvis this afternoon. previous CT documented an abscess. Functional Status: Reports: Pain Controlled, Tolerating Diet, Ambulating, Urinating - Review of Systems General: Reports: No Symptoms HEENT: Reports: No Symptoms Pulmonary: Reports: No Symptoms Cardiovascular: Reports: No Symptoms Gastrointestinal: Reports: No Symptoms Genitourinary: Reports: No Symptoms Musculoskeletal: Reports: No Symptoms Skin: Reports: No Symptoms Neurological: Reports: No Symptoms Psychiatric: Reports: No Symptoms - Patient Data Vitals - Most Recent: Last Vital Signs Temp 36.7 C 10/26/17 08:42 Pulse 82 10/26/17 08:42 Resp 14 10/26/17 08:42 BP 125/85 10/26/17 08:42 Pulse Ox 94 L 10/26/17 08:42 Weight - Most Recent: 59.058 kg I&O - Last 24 Hours: Intake & Output 10/25/17 10/26/17 10/26/17 22:59 06:59 14:59 Intake Total 2128 1224 Output Total 3100 Balance -972 1224 Lab Results Last 24 Hours: Laboratory Results - last 24 hr 10/26/17 10/26/17 Range/Units 05:11 05:40 WBC 7.56 (3.98-10.04) K/mm3 RBC 4.07 (3.98-5.22) M/mm3 Hgb 12.0 (11.2-15.7) gm/L Hct 36.1 (34.1-44.9) % MCV 88.7 (79.4-94.8) fl MCH 29.5 (25.6-32.2) pg MCHC 33.2 (32.2-35.5) g/dl RDW Std Deviation 37.5 (36.4-46.3) fL Plt Count 282 (182-369) K/mm3 MPV 9.7 (9.4-12.3) fl Neut % (Auto) 66.1 (34.0-71.1) % Lymph % (Auto) 22.0 (19.3-51.7) % [place] % (Auto) 7.9 (4.7-12.5) % Eos % (Auto) 3.3 (0.7-5.8) Baso % (Auto) 0.3 (0.1-1.2) % Neut # (Auto) 5.00 (1.56-6.13) K/mm3 Lymph # (Auto) 1.66 (1.18-3.74) K/mm3 [place] # (Auto) 0.60 H (0.24-0.36) K/mm3 Eos # (Auto) 0.25 (0.04-0.36) K/mm3 Baso # (Auto) 0.02 (0.01-0.08) K/mm3 Sodium 137 (136-145) mEq/L Potassium 3.5 (3.5-5.1) mEq/L Chloride 99 (98-107) mEq/L Carbon Dioxide 29 (21-32) mEq/L Anion Gap 12.5 (5-15) BUN 4 L (7-18) mg/dL Creatinine 0.7 (0.55-1.02) mg/dL Est Cr Clr Drug Dosing 62.07 mL/min Estimated GFR (MDRD) > 60 (>60) mL/min BUN/Creatinine Ratio 5.7 L (14-18) Glucose 93 (80-115) mg/dL Calcium 8.3 L (8.5-10.1) mg/dL Magnesium 1.7 L (1.8-2.4) mg/dl C-Reactive Protein 11.9 H* (<1.0) mg/dL Med Orders - Current: Current Medications Acetaminophen (Tylenol) 650 mg PO Q4H PRN PRN Reason: Pain (Mild 1-3)/fever Hydrocodone Bitart/Acetaminophen ([place] 325-5 Mg) 1 tab PO Q4H PRN PRN Reason: Pain (moderate 4-6) Last Admin: 10/26/17 03:49 Dose: 1 tab Aspirin (Halfprin) 81 mg PO DAILY [facility] Last Admin: 10/26/17 08:40 Dose: 81 mg Bisacodyl (Dulcolax) 5 mg PO DAILY PRN PRN Reason: Constipation Docusate Sodium (Colace) 100 mg PO BID PRN PRN Reason: Constipation Hydralazine HCl (Apresoline) 20 mg IVPUSH Q4H PRN PRN Reason: Hypertension Hydromorphone HCl (Dilaudid) 0.5 mg IVPUSH Q2H PRN PRN Reason: Pain (severe 7-10) Last Admin: 10/23/17 21:13 Dose: 0.5 mg Levofloxacin/Dextrose 750 mg/ (Premix) 150 mls @ 100 mls/hr IV Q24H [facility] Last Admin: 10/25/17 16:57 Dose: 100 mls/hr Metronidazole 500 mg/ Premix 100 mls @ 100 mls/hr IV Q8H [facility] Last Admin: 10/26/17 02:00 Dose: 100 mls/hr Sodium Chloride (Normal Saline) 1,000 mls @ 50 mls/hr IV ASDIRECTED [facility] Last Admin: 10/26/17 03:59 Dose: 50 mls/hr Lisinopril (Prinivil) 10 mg PO DAILY [facility] Last Admin: 10/26/17 08:40 Dose: 10 mg Lorazepam (Ativan) 2 mg IVPUSH Q4H PRN PRN Reason: Seizures Magnesium Hydroxide (Milk Of Magnesia) 30 ml PO Q12H PRN PRN Reason: Constipation Magnesium Sulfate (Pharmacy To Dose - Magnesium Replacement) 1 dose .XX ASDIRECTED [facility] Metoprolol Tartrate (Lopressor) 5 mg IVPUSH Q4H PRN PRN Reason: Tachycardia Ondansetron HCl (Zofran) 4 mg IV Q4H PRN PRN Reason: Nausea/Vomiting Last Admin: 10/23/17 19:43 Dose: 4 mg Pantoprazole Sodium (Protonix Iv) 40 mg IVPUSH DAILY [facility] Last Admin: 10/26/17 08:40 Dose: 40 mg Polyethylene Glycol (Miralax) 17 gm PO DAILY PRN PRN Reason: Constipation Potassium Chloride (Pharmacy To Dose - Potassium Replacement) 1 dose .XX ASDIRECTED [facility] Promethazine HCl (Phenergan) 25 mg PO Q6H PRN PRN Reason: Nausea/Vomiting Last Admin: 10/23/17 21:26 Dose: 25 mg Saccharomyces Boulardii (Florastor) 250 mg PO BID [facility] Last Admin: 10/26/17 08:40 Dose: 250 mg Senna/Docusate Sodium (Senna Plus) 1 tab PO BID PRN PRN Reason: Constipation Sodium Chloride (Saline Flush) 10 ml FLUSH ASDIRECTED PRN PRN Reason: Keep Vein Open Last Admin: 10/23/17 11:54 Dose: 10 ml Sodium Chloride (Saline Flush) 10 ml FLUSH ONETIME PRN PRN Reason: IV FLUSH Last Admin: 10/23/17 14:19 Dose: 10 ml Temazepam (Restoril) 7.5 mg PO BEDTIME PRN PRN Reason: Sleep Discontinued Medications Bumetanide (Bumex) 0.5 mg IVPUSH ONETIME ONE Stop: 10/25/17 10:32 Last Admin: 10/25/17 10:53 Dose: 0.5 mg Diatrizoate Meglum/Diatrizoate Sod (Gastrografin 37%) 90 ml PO ONETIME ONE Stop: 10/23/17 14:01 Last Admin: 10/23/17 14:19 Dose: 90 ml Hydralazine HCl (Apresoline) 10 mg IVPUSH Q4H PRN PRN Reason: Hypertension Hydromorphone HCl (Dilaudid) 0.5 mg IVPUSH ONETIME ONE Stop: 10/23/17 11:31 Last Admin: 10/23/17 11:53 Dose: 0.5 mg Hydromorphone HCl (Dilaudid) 0.5 mg IVPUSH ONETIME ONE Stop: 10/23/17 14:45 Last Admin: 10/23/17 15:01 Dose: 0.5 mg Sodium Chloride (Normal Saline) 1,000 mls @ 999 mls/hr IV ONETIME ONE Stop: 10/23/17 12:30 Last Admin: 10/23/17 11:52 Dose: 999 mls/hr Sodium Chloride (Normal Saline) 1,000 mls @ 50 mls/hr IV ASDIRECTED [facility] Last Admin: 10/24/17 23:07 Dose: 125 mls/hr Magnesium Sulfate 2 gm/ Premix 50 mls @ 25 mls/hr IV ONETIME ONE Stop: 10/24/17 10:59 Last Admin: 10/24/17 10:05 Dose: 25 mls/hr Iopamidol (Isovue-300 (61%)) 100 ml IVPUSH ONETIME ONE Stop: 10/23/17 14:01 Last Admin: 10/23/17 14:19 Dose: 100 ml Magnesium Oxide (Magnesium Oxide) 400 mg PO TID [facility] Stop: 10/25/17 21:01 Last Admin: 10/25/17 21:31 Dose: 400 mg Metoclopramide HCl (Reglan) 5 mg IVPUSH ONETIME ONE Stop: 10/23/17 13:05 Last Admin: 10/23/17 13:09 Dose: 5 mg Ondansetron HCl (Zofran) 4 mg IVPUSH ONETIME ONE Stop: 10/23/17 11:31 Last Admin: 10/23/17 11:53 Dose: 4 mg Ondansetron HCl (Zofran) 4 mg IVPUSH ONETIME ONE Stop: 10/23/17 14:45 Last Admin: 10/23/17 15:00 Dose: 4 mg Potassium Chloride (Klor-Con M20) 40 meq PO Q4H [facility] Stop: 10/24/17 04:01 Last Admin: 10/24/17 03:56 Dose: 40 meq - Exam Quality Assessment: DVT Prophylaxis General: Alert, Oriented, Cooperative, No Acute Distress HEENT: Pupils Equal, Pupils Reactive, EOMI Neck: Supple, Trachea Midline, No JVD Lungs: Clear to Auscultation, Normal Respiratory Effort Cardiovascular: Regular Rate, Regular Rhythm GI/Abdominal Exam: Normal Bowel Sounds, Soft, No Organomegaly, No Distention, Tender (minimal) (Female) Exam: Deferred Back Exam: Normal Inspection Extremities: Normal Inspection, Normal Range of Motion, Non-Tender, No Pedal Edema - Problem List Review Problem List Initiated/Reviewed/Updated: Yes - Plan Plan:: I/P: Diverticulitis with Abscess, Improving -Risk factors: Diagnosed with Diverticulitis via CT on Saturday in ED; unable to keep antibiotics down -Abdominal pain 9/10, N/V/D, decreased appetite in ED --> 7/10 pain, improving symptoms -WBC 14.47-->11.61-->9.89, CRP 18-->17.2-->17.7 -CT in ED--> worsening of diverticulitis, 2.2cm abscess -IVF -Levoquin and Flagyl IV -Pain medication PRN -Repeat CT tomorrow -Advance to full liquid diet today -Last colonoscopy 5 years ago -Recommend f/u with GI for colonoscopy Chronic: HTN--> Continue Lisinopril GERD Anxiety Plan: Advance diet as tolerated. CT repeat study today re: diverticular abscess She remains stable and continues to improve clinically Other orders as indicated above Routine AM labs Advance diet as tolerated PT consult DVT Prophylaxis: KELBY bradley, on ASA GI Prophylaxis: Protonix Ambulated as tolerated Code Status:Full Code; PCP: Johanna Hendrix
[2017-10-26] MEDS ORDERED: Diatrizoate Meglumine/Diatrizoate Sodium 37% 120 ML Bottle PO ONE (15:06)
[2017-10-26] MEDS ORDERED: Iopamidol 612 MG/ML 150 ML Bottle IVPUSH ONE (15:06)
[2017-10-26] MEDS: Ondansetron 4 MG/2 ML SDV IV PRN (15:21)
[2017-10-26] MEDS: HYDROmorphone 0.5 MG/0.5 ML SYRINGE IVPUSH PRN (16:00)
[2017-10-26] MEDS: Levofloxacin/Dextrose 5%-Water 750 MG in Premix Bag 1 BAG IV SCH (16:55)
[2017-10-26] MEDS ORDERED: Magnesium Sulfate/Water 2 GM in Premix Bag 1 BAG IV ONE (17:14)
[2017-10-26] MEDS ORDERED: Potassium Chloride 20 MEQ Tab.ER PO SCH (17:30)
[2017-10-27] MEDS: Acetaminophen/HYDROcodone 325-5 MG Tab PO PRN (04:36)
[2017-10-27] MEDS: metroNIDAZOLE/Normal Saline 500 MG in Premix Bag 1 BAG IV SCH ×3 (04:36→21:33)
[2017-10-27] MEDS: Lisinopril 10 MG Tab PO SCH (08:35)
[2017-10-27] MEDS: Aspirin 81 MG Tab.EC PO SCH (08:35)
[2017-10-27] MEDS: Pantoprazole 40 MG Vial IVPUSH SCH (08:35)
[2017-10-27] MEDS: Saccharomyces Boulardii (Probiotic) 250 MG Cap PO SCH ×2 (08:35→21:40)
--- NOTE | 2017-10-27 11:47 | PCM.PN ---
- General Info Date of Service: 10/27/17 Functional Status: Reports: Pain Controlled, Tolerating Diet, Ambulating, Urinating - Review of Systems General: Reports: No Symptoms HEENT: Reports: No Symptoms Pulmonary: Reports: No Symptoms Cardiovascular: Reports: No Symptoms Gastrointestinal: Reports: No Symptoms Genitourinary: Reports: No Symptoms Musculoskeletal: Reports: No Symptoms Skin: Reports: No Symptoms Neurological: Reports: No Symptoms Psychiatric: Reports: No Symptoms - Patient Data Vitals - Most Recent: Last Vital Signs Temp 36.7 C 10/26/17 20:58 Pulse 70 10/27/17 05:44 Resp 18 10/27/17 05:44 BP 121/67 10/27/17 08:35 Pulse Ox 93 L 10/27/17 05:44 Weight - Most Recent: 58.922 kg I&O - Last 24 Hours: Intake & Output 10/26/17 10/27/17 10/27/17 22:59 06:59 14:59 Intake Total 1939 1375 Output Total 900 600 Balance 1039 775 Lab Results Last 24 Hours: Laboratory Results - last 24 hr 10/27/17 10/27/17 Range/Units 05:45 05:45 WBC 6.15 (3.98-10.04) K/mm3 RBC 4.07 (3.98-5.22) M/mm3 Hgb 12.2 (11.2-15.7) gm/L Hct 36.4 (34.1-44.9) % MCV 89.4 (79.4-94.8) fl MCH 30.0 (25.6-32.2) pg MCHC 33.5 (32.2-35.5) g/dl RDW Std Deviation 38.2 (36.4-46.3) fL Plt Count 295 (182-369) K/mm3 MPV 9.4 (9.4-12.3) fl Neut % (Auto) 63.8 (34.0-71.1) % Lymph % (Auto) 23.9 (19.3-51.7) % [place] % (Auto) 8.8 (4.7-12.5) % Eos % (Auto) 2.9 (0.7-5.8) Baso % (Auto) 0.3 (0.1-1.2) % Neut # (Auto) 3.92 (1.56-6.13) K/mm3 Lymph # (Auto) 1.47 (1.18-3.74) K/mm3 [place] # (Auto) 0.54 H (0.24-0.36) K/mm3 Eos # (Auto) 0.18 (0.04-0.36) K/mm3 Baso # (Auto) 0.02 (0.01-0.08) K/mm3 Sodium 137 (136-145) mEq/L Potassium 4.1 (3.5-5.1) mEq/L Chloride 101 (98-107) mEq/L Carbon Dioxide 29 (21-32) mEq/L Anion Gap 11.1 (5-15) BUN 4 L (7-18) mg/dL Creatinine 0.6 (0.55-1.02) mg/dL Est Cr Clr Drug Dosing 72.42 mL/min Estimated GFR (MDRD) > 60 (>60) mL/min BUN/Creatinine Ratio 6.7 L (14-18) Glucose 100 (80-115) mg/dL Calcium 8.2 L (8.5-10.1) mg/dL Magnesium 2.1 (1.8-2.4) mg/dl C-Reactive Protein 6.0 H* (<1.0) mg/dL Med Orders - Current: Current Medications Acetaminophen (Tylenol) 650 mg PO Q4H PRN PRN Reason: Pain (Mild 1-3)/fever Hydrocodone Bitart/Acetaminophen ([place] 325-5 Mg) 1 tab PO Q4H PRN PRN Reason: Pain (moderate 4-6) Last Admin: 10/27/17 04:36 Dose: 1 tab Aspirin (Halfprin) 81 mg PO DAILY [facility] Last Admin: 10/27/17 08:35 Dose: 81 mg Bisacodyl (Dulcolax) 5 mg PO DAILY PRN PRN Reason: Constipation Docusate Sodium (Colace) 100 mg PO BID PRN PRN Reason: Constipation Hydralazine HCl (Apresoline) 20 mg IVPUSH Q4H PRN PRN Reason: Hypertension Hydromorphone HCl (Dilaudid) 0.5 mg IVPUSH Q2H PRN PRN Reason: Pain (severe 7-10) Last Admin: 10/26/17 16:00 Dose: 0.5 mg Levofloxacin/Dextrose 750 mg/ (Premix) 150 mls @ 100 mls/hr IV Q24H [facility] Last Admin: 10/26/17 16:55 Dose: 100 mls/hr Sodium Chloride (Normal Saline) 1,000 mls @ 50 mls/hr IV ASDIRECTED [facility] Last Admin: 10/26/17 23:42 Dose: 50 mls/hr Metronidazole 500 mg/ Premix 100 mls @ 100 mls/hr IV Q8H [facility] Last Admin: 10/27/17 04:36 Dose: 100 mls/hr Lisinopril (Prinivil) 10 mg PO DAILY [facility] Last Admin: 10/27/17 08:35 Dose: 10 mg Lorazepam (Ativan) 2 mg IVPUSH Q4H PRN PRN Reason: Seizures Magnesium Hydroxide (Milk Of Magnesia) 30 ml PO Q12H PRN PRN Reason: Constipation Metoprolol Tartrate (Lopressor) 5 mg IVPUSH Q4H PRN PRN Reason: Tachycardia Ondansetron HCl (Zofran) 4 mg IV Q4H PRN PRN Reason: Nausea/Vomiting Last Admin: 10/26/17 15:21 Dose: 4 mg Pantoprazole Sodium (Protonix Iv) 40 mg IVPUSH DAILY [facility] Last Admin: 10/27/17 08:35 Dose: 40 mg Polyethylene Glycol (Miralax) 17 gm PO DAILY PRN PRN Reason: Constipation Potassium Chloride (Klor-Con M20) 40 meq PO 0800,1700 [facility] Stop: 10/27/17 17:01 Promethazine HCl (Phenergan) 25 mg PO Q6H PRN PRN Reason: Nausea/Vomiting Last Admin: 10/23/17 21:26 Dose: 25 mg Saccharomyces Boulardii (Florastor) 250 mg PO BID [facility] Last Admin: 10/27/17 08:35 Dose: 250 mg Senna/Docusate Sodium (Senna Plus) 1 tab PO BID PRN PRN Reason: Constipation Sodium Chloride (Saline Flush) 10 ml FLUSH ASDIRECTED PRN PRN Reason: Keep Vein Open Last Admin: 10/23/17 11:54 Dose: 10 ml Temazepam (Restoril) 7.5 mg PO BEDTIME PRN PRN Reason: Sleep Discontinued Medications Bumetanide (Bumex) 0.5 mg IVPUSH ONETIME ONE Stop: 10/25/17 10:32 Last Admin: 10/25/17 10:53 Dose: 0.5 mg Diatrizoate Meglum/Diatrizoate Sod (Gastrografin 37%) 90 ml PO ONETIME ONE Stop: 10/23/17 14:01 Last Admin: 10/23/17 14:19 Dose: 90 ml Diatrizoate Meglum/Diatrizoate Sod (Gastrografin 37%) 90 ml PO ONETIME ONE Stop: 10/26/17 15:07 Last Admin: 10/26/17 16:19 Dose: 90 ml Hydralazine HCl (Apresoline) 10 mg IVPUSH Q4H PRN PRN Reason: Hypertension Hydromorphone HCl (Dilaudid) 0.5 mg IVPUSH ONETIME ONE Stop: 10/23/17 11:31 Last Admin: 10/23/17 11:53 Dose: 0.5 mg Hydromorphone HCl (Dilaudid) 0.5 mg IVPUSH ONETIME ONE Stop: 10/23/17 14:45 Last Admin: 10/23/17 15:01 Dose: 0.5 mg Sodium Chloride (Normal Saline) 1,000 mls @ 999 mls/hr IV ONETIME ONE Stop: 10/23/17 12:30 Last Admin: 10/23/17 11:52 Dose: 999 mls/hr Sodium Chloride (Normal Saline) 1,000 mls @ 50 mls/hr IV ASDIRECTED [facility] Last Admin: 10/24/17 23:07 Dose: 125 mls/hr Metronidazole 500 mg/ Premix 100 mls @ 100 mls/hr IV Q8H [facility] Last Admin: 10/26/17 10:23 Dose: 100 mls/hr Magnesium Sulfate 2 gm/ Premix 50 mls @ 25 mls/hr IV ONETIME ONE Stop: 10/24/17 10:59 Last Admin: 10/24/17 10:05 Dose: 25 mls/hr Magnesium Sulfate 2 gm/ Premix 50 mls @ 25 mls/hr IV ONETIME ONE Stop: 10/26/17 19:13 Last Admin: 10/26/17 18:09 Dose: 25 mls/hr Iopamidol (Isovue-300 (61%)) 100 ml IVPUSH ONETIME ONE Stop: 10/23/17 14:01 Last Admin: 10/23/17 14:19 Dose: 100 ml Iopamidol (Isovue-300 (61%)) 125 ml IVPUSH ONETIME ONE Stop: 10/26/17 15:07 Last Admin: 10/26/17 16:20 Dose: 125 ml Magnesium Oxide (Magnesium Oxide) 400 mg PO TID [facility] Stop: 10/25/17 21:01 Last Admin: 10/25/17 21:31 Dose: 400 mg Magnesium Sulfate (Pharmacy To Dose - Magnesium Replacement) 1 dose .XX ASDIRECTED [facility] Metoclopramide HCl (Reglan) 5 mg IVPUSH ONETIME ONE Stop: 10/23/17 13:05 Last Admin: 10/23/17 13:09 Dose: 5 mg Ondansetron HCl (Zofran) 4 mg IVPUSH ONETIME ONE Stop: 10/23/17 11:31 Last Admin: 10/23/17 11:53 Dose: 4 mg Ondansetron HCl (Zofran) 4 mg IVPUSH ONETIME ONE Stop: 10/23/17 14:45 Last Admin: 10/23/17 15:00 Dose: 4 mg Potassium Chloride (Pharmacy To Dose - Potassium Replacement) 1 dose .XX ASDIRECTED [facility] Potassium Chloride (Klor-Con M20) 40 meq PO Q4H [facility] Stop: 10/24/17 04:01 Last Admin: 10/24/17 03:56 Dose: 40 meq Potassium Chloride (Klor-Con M20) 40 meq PO BIDMEALS [facility] Stop: 10/27/17 17:01 Last Admin: 10/26/17 18:09 Dose: 40 meq Sodium Chloride (Saline Flush) 10 ml FLUSH ONETIME PRN PRN Reason: IV FLUSH Last Admin: 10/23/17 14:19 Dose: 10 ml - Exam Quality Assessment: DVT Prophylaxis General: Alert, Oriented, Cooperative, No Acute Distress HEENT: Pupils Equal, Pupils Reactive, EOMI Neck: Supple Lungs: Normal Respiratory Effort Cardiovascular: Regular Rate, Regular Rhythm GI/Abdominal Exam: Normal Bowel Sounds, Soft, Non-Tender, No Organomegaly, No Distention (Female) Exam: Deferred Back Exam: Normal Inspection Extremities: Normal Inspection, Normal Range of Motion, Non-Tender, Normal Capillary Refill Skin: Warm Neurological: No New Focal Deficit, Normal Gait, Normal Speech Psy/Mental Status: Alert, Normal Affect, Normal Mood - Problem List Review Problem List Initiated/Reviewed/Updated: Yes - My Orders Last 24 Hours: My Active Orders 10/26/17 Lunch Heart Healthy Diet [DIET] 10/27/17 08:00 Potassium Chloride [Klor-Con M20] 40 meq PO 0800,1700 - Plan Plan:: I/P: Diverticulitis with Abscess, Improving -Risk factors: Diagnosed with Diverticulitis via CT on Saturday in ED; unable to keep antibiotics down -Abdominal pain 0/10 -WBC 14.47-->11.61-->9.89, CRP 18-->17.2-->17.7-->11-->6.0 -CT in ED--> worsening of diverticulitis, 2.2cm abscess, actually 2 x 1 cm abscesses -IVF -Levoquin and Flagyl IV-->start oral 10/28; add probiotic. -Pain medication PRN -Repeat CT , 10/31; gen surg w/ Dr Jordan as OP. -Advance to full liquid diet today -Last colonoscopy 5 years ago -Recommend f/u with GI for colonoscopy Chronic: HTN--> Continue Lisinopril GERD Anxiety Plan: Advance diet as tolerated. CT repeat 10/31 re: diverticular abscess She remains stable and continues to improve clinically Other orders as indicated above Routine AM labs PT consult DVT Prophylaxis: KELBY bradley, on ASA GI Prophylaxis: Protonix Ambulated as tolerated Code Status:Full Code; PCP: Johanna Hendrix LOS>96 hours, IV ATB continued for diverticulitis w/ abscess.
[2017-10-27] MEDS: Potassium Chloride 20 MEQ Tab.ER PO SCH ×2 (12:22→18:36)
[2017-10-27] MEDS: Levofloxacin/Dextrose 5%-Water 750 MG in Premix Bag 1 BAG IV SCH (17:00)
[2017-10-28] MEDS: metroNIDAZOLE/Normal Saline 500 MG in Premix Bag 1 BAG IV SCH (04:44)
[2017-10-28] MEDS: Lisinopril 10 MG Tab PO SCH (08:34)
[2017-10-28] MEDS: Saccharomyces Boulardii (Probiotic) 250 MG Cap PO SCH (08:34)
[2017-10-28] MEDS: Aspirin 81 MG Tab.EC PO SCH (08:34)
[2017-10-28] MEDS: Pantoprazole 40 MG Vial IVPUSH SCH (08:34)
--- NOTE | 2017-10-28 08:35 | CT ---
CT abdomen and pelvis Technique: Multiple axial sections were obtained from above the dome of the diaphragm inferiorly through the pubic symphysis. Intravenous and oral contrast was utilized. Delayed images were also obtained through the bladder. Comparison: Prior CT abdomen and pelvis exam of 10/23/17. Findings: Bowel wall thickening and inflammatory change seen within the lower sigmoid colon near the rectosigmoid junction compatible with continuing diverticulitis. This finding was seen on prior study. Continuing abscess is seen off the inferior portion of the sigmoid colon into the left perirectal space compatible with persisting small abscess measuring about 2.5 cm. Overall size is similar to prior study but inflammatory change has slightly increased. There is an additional low density abnormality slightly superior to the first abscess measuring approximately 1.2 cm which is felt compatible with small new abscess. Numerous sigmoid diverticula are again seen. Visualized lung bases show nothing acute. Liver shows no focal abnormality. Prior cholecystectomy is noted. Spleen appears within normal limits. Adrenal glands show no nodule. Kidneys show symmetric contrast enhancement without hydronephrosis or mass. Pancreas appears normal. Aorta shows no aneurysmal dilatation. No retroperitoneal adenopathy or mesenteric abnormalities are seen. No pelvic mass or adenopathy is noted. Delayed images show contrast within the distal ureters and within the bladder. Slightly prominent wall thickening seen within the pylorus. This may relate to normal contraction versus antritis. Bone window settings were reviewed which show severe disc space narrowing at L2-L3 with vacuum phenomena and degenerative endplate sclerosis. Other less prominent degenerative change scattered within the lumbar spine. Impression: 1. Continuing diverticulitis within the lower sigmoid colon. Mild increasing inflammatory change around small perirectal abscess is seen. Second small 1.2 cm abscess seen adjacent to the first abscess which is an interval change. 2. Thickening of the wall of the pylorus which may relate to peristalsis but difficult to exclude antritis if patient has correlating symptoms. Diagnostic code #3 Agree with preliminary report issued by [facility] ([facility] preliminary report dictated on 10/26/17, 6:05 PM Central Time)
[2017-10-28] MEDS ORDERED: metroNIDAZOLE 500 MG Tab PO SCH (10:00)
[2017-10-28] MEDS ORDERED: Levofloxacin 500 MG Tab PO SCH (10:00)
--- NOTE | 2017-10-28 10:01 | PCM.DCSUM1 ---
Discharge Summary - Hospital Course Free Text/Narrative:: 62-year-old female presents for evaluation and treatment of abdominal pain. Patient reports abdominal pain in the lower abdomen, currently rates the pain as 8 or 9 out of 10. She reports associated symptoms of nausea, vomiting and fevers. Patient was seen on Saturday night/ Saturday morning in the ER. She had labs and a CT done. Diagnosed with diverticulitis. She has been on Flagyl and ciprofloxacin since the diagnosis. She was also given [place] and Zofran. She states that she is getting worse. She is vomiting and is therefore unable to keep her antibiotics down. She did take her antibiotic this morning around 6 AM and has kept them down today. No vomiting today. She took a Zofran this morning around 6 AM. She also took a hydrocodone around 4 AM. States her fevers have been 97-99, she has not had a fever since Saturday. No chills or any blood in her stool. She has had diarrhea recently but attributes this to the oral contrast she had on Saturday for the CT. Reports that she has not had much appetite. Patient reports one month ago she experienced "weird sensation" in her lower abdomen. She saw her primary care provider, Elicia Boone, who ordered a CT. She states she had thickening in the small bowel. She had an upper endoscopy with biopsies. Reports that these returned normal. Reports her last colonoscopy was about 5 years ago. The patient was treated with pain meds, IV ATBs and had serial CT of abd/ pelvis. She was DCd on a seven day course of levoquin/flagyl. A repeat CT of abd/pelvis is ordered. An OP appt with her PCP has been scheduled; she however will need a colonoscopy and follow up of her abscess in the narendra-rectal area w/ gen surg (TBA) by PCP. HPI Initial Comments: This is a 62 yo female with past medical hx/o HTN, GERD, Anxiety who comes in for worsening diverticulitis. Currently 7/10 pain. She reports fever, nausea, vomiting, diarrhea, decreased appetite. She denies chills, bloody stool or other GI/ complaints. Her symptoms improved after receiving fluids, anti-nausea medication, and pain medication in the ED. Her initial workup in the ED shows a CBC remarkable for WBC 14.47, Neutrophils of 86%, and lymphocyte of 11%. Her chemistry is remarkable for Na 129, Cl 92, Anion Gap 15.7, Glucose 79, CRP 18, Albumin 3.3. CT showed worsening diverticulitis and 2.2 cm abscess. She is subsequently admitted to the medical floor. She is a Full code. Her PCP is Johanna Hendrix. Lower Abdominal - Discharge Data Discharge Date: 10/28/17 Discharge Disposition: Home, Self-Care 01 Condition: Good - Patient Summary/Data Consults: Consultations 10/23/17 16:40 Consult to Spiritual Care [CONS] Routine 10/25/17 11:49 PT Evaluation and Treatment [CONS] Routine Recommended Follow-up Testing/Procedures: CT of abd/pelivs w, w/o contrast; PCP and general surgery. - Patient Instructions Diet: Usual Diet as Tolerated Activity: As Tolerated Driving: May Drive Today Showering/Bathing: October Shower - Discharge Plan Prescriptions/Med Rec: Levofloxacin [Levaquin] 500 mg PO DAILY #7 tab metroNIDAZOLE [Flagyl] 500 mg PO TID #21 tab Saccharomyces Boulardii [Florastor] 250 mg PO BID #60 cap Home Medications: Home Meds Aspirin [Halfprin] 81 mg PO DAILY 10/20/17 [History] Lisinopril [Prinivil] 10 mg PO DAILY 10/20/17 [History] Omeprazole 20 mg PO BID 10/20/17 [History] Hydrocodone/Acetaminophen [Hydrocodon-Acetaminophen 5-325] 1 - 2 each PO Q6HR PRN #10 tablet 10/21/17 [Rx] Ondansetron [Zofran ODT] 4 mg PO Q6H PRN #20 tab.dis 10/21/17 [Rx] Levofloxacin [Levaquin] 500 mg PO DAILY #7 tab 10/28/17 [Rx] Saccharomyces Boulardii [Florastor] 250 mg PO BID #60 cap 10/28/17 [Rx] metroNIDAZOLE [Flagyl] 500 mg PO TID #21 tab 10/28/17 [Rx] Other Amb Orders: Abdomen Pelvis w wo Cont [CT] Time Frame: 11/05/17, Facility: [facility], Location: [facility] - [facility] CBC WITH AUTO DIFF [HEME] Time Frame: 11/05/17, Facility: [facility], Location: [facility] - [facility] Patient Handouts: Diverticulitis Forms: ED Department Discharge Referrals: Johanna Hendrix PA-C [Primary Care Provider] - 11/12/17 (Please make appointment to follow-up in [address] of your abdomen. recommends you talk to Elicia about following up with a surgeon related to the abcess.) - Discharge Summary/Plan Comment DC Time >30 min.: No Discharge Summary/Plan Comment: I/P: Diverticulitis with Abscess, Improving -Risk factors: Diagnosed with Diverticulitis via CT on Saturday in ED; unable to keep antibiotics down--failed OP treatment Improved w/ IV ATB (Levoquin/Flagyl) -Abdominal pain 0/10 -WBC 14.47-->11.61-->9.89, CRP 18-->17.2-->17.7-->11-->6.0 -CT in ED--> worsening of diverticulitis, 2.2cm abscess, actually 2 x 1 cm abscesses (narendra-rectal) -IVF -Levoquin and Flagyl IV-->start oral 10/28; add probiotic, DC on Florstar -Pain medication PRN -Repeat CT , 10/31; gen surg w/ Dr Jordan as OP. -Advance to full liquid diet today -Last colonoscopy 5 years ago -Recommend f/u with GI for colonoscopy-->Gen surg re: diverticular disease w / abscess Chronic: HTN--> Continue Lisinopril GERD Anxiety Plan: Advance diet as tolerated. CT repeat 11/05 re: diverticular abscess; PCP appt 11/12 She remains stable and continues to improve clinically Other orders as indicated above Routine AM labs PT consult DVT Prophylaxis: KELBY bradley, on ASA GI Prophylaxis: Protonix Ambulated as tolerated Code Status:Full Code; PCP: Johanna Hendrix LOS>96 hours, IV ATB continued for diverticulitis w/ abscess. - General Info Date of Service: 10/23/17 Functional Status: Reports: Pain Controlled, Tolerating Diet, Ambulating, Urinating - Review of Systems General: Reports: No Symptoms HEENT: Reports: No Symptoms Pulmonary: Reports: No Symptoms Cardiovascular: Reports: No Symptoms Gastrointestinal: Reports: No Symptoms Genitourinary: Reports: No Symptoms Musculoskeletal: Reports: No Symptoms Skin: Reports: No Symptoms Neurological: Reports: No Symptoms Psychiatric: Reports: No Symptoms - Patient Data Vitals - Most Recent: Last Vital Signs Temp 36.6 C 10/28/17 03:14 Pulse 71 10/28/17 03:14 Resp 16 10/28/17 03:14 BP 137/89 10/28/17 08:34 Pulse Ox 95 10/28/17 03:14 Weight - Most Recent: 57.805 kg I&O - Last 24 hours: Intake & Output 10/27/17 10/28/17 10/28/17 22:59 06:59 14:59 Intake Total 1720 1000 Output Total 1200 1500 Balance 520 -500 Lab Results - Last 24 hrs: Laboratory Results - last 24 hr 10/28/17 10/28/17 Range/Units 05:45 05:45 WBC 6.75 (3.98-10.04) K/mm3 RBC 4.44 (3.98-5.22) M/mm3 Hgb 13.0 (11.2-15.7) gm/L Hct 39.1 (34.1-44.9) % MCV 88.1 (79.4-94.8) fl MCH 29.3 (25.6-32.2) pg MCHC 33.2 (32.2-35.5) g/dl RDW Std Deviation 38.2 (36.4-46.3) fL Plt Count 328 (182-369) K/mm3 MPV 9.2 L (9.4-12.3) fl Neut % (Auto) 61.2 (34.0-71.1) % Lymph % (Auto) 27.3 (19.3-51.7) % [place] % (Auto) 7.4 (4.7-12.5) % Eos % (Auto) 3.6 (0.7-5.8) Baso % (Auto) 0.1 (0.1-1.2) % Neut # (Auto) 4.13 (1.56-6.13) K/mm3 Lymph # (Auto) 1.84 (1.18-3.74) K/mm3 [place] # (Auto) 0.50 H (0.24-0.36) K/mm3 Eos # (Auto) 0.24 (0.04-0.36) K/mm3 Baso # (Auto) 0.01 (0.01-0.08) K/mm3 Manual Slide Review Normal smear Sodium 134 L (136-145) mEq/L Potassium 4.4 (3.5-5.1) mEq/L Chloride 98 (98-107) mEq/L Carbon Dioxide 28 (21-32) mEq/L Anion Gap 12.4 (5-15) BUN 6 L (7-18) mg/dL Creatinine 0.6 (0.55-1.02) mg/dL Est Cr Clr Drug Dosing 72.42 mL/min Estimated GFR (MDRD) > 60 (>60) mL/min BUN/Creatinine Ratio 10.0 L (14-18) Glucose 94 (80-115) mg/dL Calcium 8.9 (8.5-10.1) mg/dL Magnesium 1.9 (1.8-2.4) mg/dl C-Reactive Protein 3.6 H* (<1.0) mg/dL Med Orders - Current: Current Medications Acetaminophen (Tylenol) 650 mg PO Q4H PRN PRN Reason: Pain (Mild 1-3)/fever Hydrocodone Bitart/Acetaminophen ([place] 325-5 Mg) 1 tab PO Q4H PRN PRN Reason: Pain (moderate 4-6) Last Admin: 10/27/17 04:36 Dose: 1 tab Aspirin (Halfprin) 81 mg PO DAILY [facility] Last Admin: 10/28/17 08:34 Dose: 81 mg Bisacodyl (Dulcolax) 5 mg PO DAILY PRN PRN Reason: Constipation Docusate Sodium (Colace) 100 mg PO BID PRN PRN Reason: Constipation Hydralazine HCl (Apresoline) 20 mg IVPUSH Q4H PRN PRN Reason: Hypertension Hydromorphone HCl (Dilaudid) 0.5 mg IVPUSH Q2H PRN PRN Reason: Pain (severe 7-10) Last Admin: 10/26/17 16:00 Dose: 0.5 mg Levofloxacin/Dextrose 750 mg/ (Premix) 150 mls @ 100 mls/hr IV Q24H [facility] Last Admin: 10/27/17 17:00 Dose: 100 mls/hr Metronidazole 500 mg/ Premix 100 mls @ 100 mls/hr IV Q8H [facility] Last Admin: 10/28/17 04:44 Dose: 100 mls/hr Lisinopril (Prinivil) 10 mg PO DAILY [facility] Last Admin: 10/28/17 08:34 Dose: 10 mg Lorazepam (Ativan) 2 mg IVPUSH Q4H PRN PRN Reason: Seizures Magnesium Hydroxide (Milk Of Magnesia) 30 ml PO Q12H PRN PRN Reason: Constipation Metoprolol Tartrate (Lopressor) 5 mg IVPUSH Q4H PRN PRN Reason: Tachycardia Ondansetron HCl (Zofran) 4 mg IV Q4H PRN PRN Reason: Nausea/Vomiting Last Admin: 10/26/17 15:21 Dose: 4 mg Pantoprazole Sodium (Protonix Iv) 40 mg IVPUSH DAILY [facility] Last Admin: 10/28/17 08:34 Dose: 40 mg Polyethylene Glycol (Miralax) 17 gm PO DAILY PRN PRN Reason: Constipation Promethazine HCl (Phenergan) 25 mg PO Q6H PRN PRN Reason: Nausea/Vomiting Last Admin: 10/23/17 21:26 Dose: 25 mg Saccharomyces Boulardii (Florastor) 250 mg PO BID [facility] Last Admin: 10/28/17 08:34 Dose: 250 mg Senna/Docusate Sodium (Senna Plus) 1 tab PO BID PRN PRN Reason: Constipation Sodium Chloride (Saline Flush) 10 ml FLUSH ASDIRECTED PRN PRN Reason: Keep Vein Open Last Admin: 10/23/17 11:54 Dose: 10 ml Temazepam (Restoril) 7.5 mg PO BEDTIME PRN PRN Reason: Sleep Last Admin: 10/27/17 21:40 Dose: 7.5 mg Discontinued Medications Bumetanide (Bumex) 0.5 mg IVPUSH ONETIME ONE Stop: 10/25/17 10:32 Last Admin: 10/25/17 10:53 Dose: 0.5 mg Diatrizoate Meglum/Diatrizoate Sod (Gastrografin 37%) 90 ml PO ONETIME ONE Stop: 10/23/17 14:01 Last Admin: 10/23/17 14:19 Dose: 90 ml Diatrizoate Meglum/Diatrizoate Sod (Gastrografin 37%) 90 ml PO ONETIME ONE Stop: 10/26/17 15:07 Last Admin: 10/26/17 16:19 Dose: 90 ml Hydralazine HCl (Apresoline) 10 mg IVPUSH Q4H PRN PRN Reason: Hypertension Hydromorphone HCl (Dilaudid) 0.5 mg IVPUSH ONETIME ONE Stop: 10/23/17 11:31 Last Admin: 10/23/17 11:53 Dose: 0.5 mg Hydromorphone HCl (Dilaudid) 0.5 mg IVPUSH ONETIME ONE Stop: 10/23/17 14:45 Last Admin: 10/23/17 15:01 Dose: 0.5 mg Sodium Chloride (Normal Saline) 1,000 mls @ 999 mls/hr IV ONETIME ONE Stop: 10/23/17 12:30 Last Admin: 10/23/17 11:52 Dose: 999 mls/hr Sodium Chloride (Normal Saline) 1,000 mls @ 50 mls/hr IV ASDIRECTED [facility] Last Admin: 10/24/17 23:07 Dose: 125 mls/hr Metronidazole 500 mg/ Premix 100 mls @ 100 mls/hr IV Q8H [facility] Last Admin: 10/26/17 10:23 Dose: 100 mls/hr Magnesium Sulfate 2 gm/ Premix 50 mls @ 25 mls/hr IV ONETIME ONE Stop: 10/24/17 10:59 Last Admin: 10/24/17 10:05 Dose: 25 mls/hr Sodium Chloride (Normal Saline) 1,000 mls @ 50 mls/hr IV ASDIRECTED [facility] Last Admin: 10/26/17 23:42 Dose: 50 mls/hr Magnesium Sulfate 2 gm/ Premix 50 mls @ 25 mls/hr IV ONETIME ONE Stop: 10/26/17 19:13 Last Admin: 10/26/17 18:09 Dose: 25 mls/hr Iopamidol (Isovue-300 (61%)) 100 ml IVPUSH ONETIME ONE Stop: 10/23/17 14:01 Last Admin: 10/23/17 14:19 Dose: 100 ml Iopamidol (Isovue-300 (61%)) 125 ml IVPUSH ONETIME ONE Stop: 10/26/17 15:07 Last Admin: 10/26/17 16:20 Dose: 125 ml Magnesium Oxide (Magnesium Oxide) 400 mg PO TID [facility] Stop: 10/25/17 21:01 Last Admin: 10/25/17 21:31 Dose: 400 mg Magnesium Sulfate (Pharmacy To Dose - Magnesium Replacement) 1 dose .XX ASDIRECTED [facility] Metoclopramide HCl (Reglan) 5 mg IVPUSH ONETIME ONE Stop: 10/23/17 13:05 Last Admin: 10/23/17 13:09 Dose: 5 mg Ondansetron HCl (Zofran) 4 mg IVPUSH ONETIME ONE Stop: 10/23/17 11:31 Last Admin: 10/23/17 11:53 Dose: 4 mg Ondansetron HCl (Zofran) 4 mg IVPUSH ONETIME ONE Stop: 10/23/17 14:45 Last Admin: 10/23/17 15:00 Dose: 4 mg Potassium Chloride (Pharmacy To Dose - Potassium Replacement) 1 dose .XX ASDIRECTED [facility] Potassium Chloride (Klor-Con M20) 40 meq PO Q4H [facility] Stop: 10/24/17 04:01 Last Admin: 10/24/17 03:56 Dose: 40 meq Potassium Chloride (Klor-Con M20) 40 meq PO BIDMEALS [facility] Stop: 10/27/17 17:01 Last Admin: 10/26/17 18:09 Dose: 40 meq Potassium Chloride (Klor-Con M20) 40 meq PO 0800,1700 [facility] Stop: 10/27/17 17:01 Last Admin: 10/27/17 18:36 Dose: 40 meq Sodium Chloride (Saline Flush) 10 ml FLUSH ONETIME PRN PRN Reason: IV FLUSH Last Admin: 10/23/17 14:19 Dose: 10 ml - Exam Quality Assessment: Reports: DVT Prophylaxis General: Reports: Alert, Oriented, Cooperative, No Acute Distress HEENT: Reports: Pupils Equal, Pupils Reactive, EOMI Neck: Reports: Trachea Midline, No JVD Lungs: Reports: Normal Respiratory Effort Cardiovascular: Reports: Regular Rate, Regular Rhythm GI/Abdominal Exam: Normal Bowel Sounds, Soft, Non-Tender, No Organomegaly, No Distention (Female) Exam: Deferred Rectal (Female) Exam: Deferred Back Exam: Reports: Normal Inspection Skin: Reports: Warm Neurological: Reports: No New Focal Deficit, Normal Gait, Normal Speech Psy/Mental Status: Reports: Alert, Normal Affect, Normal Mood
== END 2017-10-28 11:16 | disposition home or self-care (01) | DRG 244 ==
LOC: JD.ED 10:34 → JD.MS 16:06
PROVIDERS: ADMIT Internal Medicine; ATTEND Internal Medicine
DX: K57.20 Diverticulitis of large intestine with perforation and abscess without bleeding (principal); K52.1 Toxic gastroenteritis and colitis; T50.8X5A Adverse effect of diagnostic agents, initial encounter; I10 Essential (primary) hypertension; K21.9 Gastro-esophageal reflux disease without esophagitis; F41.9 Anxiety disorder, unspecified; H54.7 Unspecified visual loss; H04.129 Dry eye syndrome of unspecified lacrimal gland; Z79.82 Long term (current) use of aspirin; Z79.899 Other long term (current) drug therapy; Z88.6 Allergy status to analgesic agent; Z87.440 Personal history of urinary (tract) infections; Z90.49 Acquired absence of other specified parts of digestive tract; Z90.710 Acquired absence of both cervix and uterus
CPT/HCPCS: 36415; 74019; 74019-26; 74177; 74177-26; 80048; 80053; 81001; 83735; 85007; 85025; 85027; 86140; 96361; 96374; 96375; 96376; 97161-GP; 99284; 99285-25; A9270-GY; C9113; J1170; J1956; J2405; J2765; J3475; J7040; J7050; Q0169; Q9963; Q9967

== ENCOUNTER 2021-11-09 05:45 | Day surgery (SDC) | payer MEDICARE, OTHER ==
[~2021-11-09 05:45] MED LIST: Lactated Ringers 1,000 ML IV SCH; Lidocaine 1%/Sod Bicarbonate in NS 8.4% 1 ML Syringe IDERM PRN; Sodium Chloride 0.9% 10 ML Syringe FLUSH PRN; Sodium Chloride 0.9% 10 ML Syringe FLUSH SCH
[2021-11-09] MEDS ORDERED: Bupivacaine 0.25% 10 ML SDV ONE ×2 (06:12)
[2021-11-09] MEDS ORDERED: Triamcinolone Acetonide 40 MG/ML 1 ML SDV ONE (06:12)
[2021-11-09] MEDS ORDERED: Lidocaine 1% 30 ML SDV ONE (06:12)
[2021-11-09] MEDS ORDERED: Propofol 200 MG/20 ML SDV ONE (06:45)
[2021-11-09] MEDS ORDERED: fentaNYL 100 MCG/2 ML SDV ONE ×2 (06:46→06:58)
[2021-11-09] MEDS ORDERED: Midazolam 1 MG/ML 2 ML SDV ONE (06:46)
[2021-11-09] MEDS ORDERED: Lidocaine 1% 4 ML ONE (06:46)
[2021-11-09] MEDS ORDERED: Ondansetron 4 MG/2 ML SDV ONE (07:00)
== END 2021-11-09 08:10 | disposition home or self-care (01) ==
LOC: JD.SDS 05:45
PROVIDERS: ATTEND Orthopaedic Surgery
DX: G56.13 Other lesions of median nerve, bilateral upper limbs (principal); G56.03 Carpal tunnel syndrome, bilateral upper limbs; K21.9 Gastro-esophageal reflux disease without esophagitis; I10 Essential (primary) hypertension; M81.0 Age-related osteoporosis without current pathological fracture; E55.9 Vitamin D deficiency, unspecified; J30.9 Allergic rhinitis, unspecified; Z88.5 Allergy status to narcotic agent; Z79.899 Other long term (current) drug therapy; Z98.890 Other specified postprocedural states; Z90.49 Acquired absence of other specified parts of digestive tract
CPT/HCPCS: 20526; 64721; J2250; J2405; J2704; J3010; J3301; J3490; J7120; 01810

== ENCOUNTER → 2022-07-05 | Day surgery (SDC) | payer MEDICARE, OTHER ==
[~2022-07-05] MED LIST changes: +Bupivacaine 0.25% 10 ML SDV ONE; +Lidocaine 1% 10 ML MDV ONE; +Midazolam 1 MG/ML 2 ML SDV ONE; +Ondansetron 4 MG/2 ML SDV ONE; +Propofol 200 MG/20 ML SDV ONE; -Sodium Chloride 0.9% 10 ML Syringe FLUSH SCH; +fentaNYL 100 MCG/2 ML SDV ONE
== END | disposition home or self-care (01) ==
LOC: JD.SDS 09:51
PROVIDERS: ATTEND Orthopaedic Surgery
DX: G56.02 Carpal tunnel syndrome, left upper limb (principal); G56.12 Other lesions of median nerve, left upper limb; J30.9 Allergic rhinitis, unspecified; K21.9 Gastro-esophageal reflux disease without esophagitis; I10 Essential (primary) hypertension; M81.0 Age-related osteoporosis without current pathological fracture; E55.9 Vitamin D deficiency, unspecified; F41.9 Anxiety disorder, unspecified; Z88.6 Allergy status to analgesic agent; Z79.899 Other long term (current) drug therapy; Z98.890 Other specified postprocedural states
CPT/HCPCS: 01810; J2250; J2405; J2704; J3010; J3490; J7120